=== PATIENT | female | born 1975 | race Caucasian/White ===

== ENCOUNTER → 2017-06-18 | Outpatient (CLI) | payer MEDICAID, SELFPAY | PROVIDERS: Visit Provider Nurse Practitioner Obstetrics & Gynecology | DX: R92.8 Other abnormal and inconclusive findings on diagnostic imaging of breast (principal) | CPT/HCPCS: 76641; 77066; G0204 ==

== ENCOUNTER → 2017-07-28 14:45 | Outpatient (REF) | payer MEDICAID, SELFPAY ==
[2017-07-28 18:44] LABS: Basophils # 0.1 K/mm3 (0-0.2); Basophils % 0.9 % (0.1-2.0); Eosinophils # 0.1 K/mm3 (0.0-0.4); Eosinophils % 1.5 % (0.1-12.0); Hematocrit 42.7 % (37.0-47.0); Hemoglobin 13.9 g/dL (12.2-16.2); Lymphocytes # 2.1 K/mm3 (0.7-4.5); Lymphocytes % 21.6 K/mm3 (10-50); Mean Corpuscular HGB Conc 32.6 g/dL (31.8-35.4); Mean Corpuscular Hemoglobin 30.5 pg (27.0-31.2); Mean Corpuscular Volume 93.6 fl (81-99); Monocytes # 0.5 K/mm3 (0.1-1.0); Monocytes % 4.9 % (1.7-9.3); Neutrophils # 6.7 K/mm3 (1.8-7.8); Neutrophils % 71.1 % (37.0-80.0); Platelet Count 209 K/mm3 (142-424); Red Blood Count 4.56 M/mm3 (4.20-5.40); Red Cell Distribution Width 13.1 % (11.5-17.5); White Blood Count 9.5 K/mm3 (4.8-10.8)
[2017-07-28 19:37] LABS: Alanine Aminotransferase 21 U/L (12-78); Albumin Level 3.9 gm/dL (3.4-5.0); Albumin/Globulin Ratio 1.6 (1.1-1.8); Alkaline Phosphatase 64 U/L (46-116); Anion Gap 11.6 mEq/L (5-15); Aspartate Amino Transferase 19 U/L (15-37); Bilirubin,Total 0.2 mg/dL (0.2-1.0); Blood Urea Nitrogen 11 mg/dL (7-18); Calcium 8.7 mg/dL (8.5-10.1); Carbon Dioxide 27 mmol/L (21.0-32.0); Chloride 106 mmol/L (98-107); Chol/HDL Ratio 2.3 (1-3.5); Cholesterol 152 mg/dL (140-200); Creatinine,Serum 0.98 mg/dL (0.55-1.02); Estimated Glomerular Filt Rate 63 ml/min (>60); GFR (African American) 76 ML/MIN (>60); Globulin 2.5 gm/dl (1.3-3.2); Glucose 85 mg/dL (74-106); HDL Cholesterol 65 mg/dL (29-89); LDL Cholesterol 66 mg/dL (0-130); Potassium 4.6 mmoL/L (3.5-5.1); Sodium 140 mmol/L (136-145); T4 (Thyroxine) 9.2 ug/dl (4.7-13.3); Thyroid Stimulating Hormone 1.05 uIU/ml (0.358-3.740); Total Protein,Serum 6.4 gm/dL (6.4-8.2); Triglycerides 106 mg/dL (30-200); VLDL Cholesterol 21 mg/dL (0-40)
[2017-07-31 11:07] LABS: Vitamin D 25 Hydroxy 33.3 ng/mL (30.0-100.0)
== END ==
LOC: LAB 14:45
PROVIDERS: Visit Provider Physician Assistant
DX: R07.9 Chest pain, unspecified (principal)
CPT/HCPCS: 80053; 80061; 82652; 84436; 84443; 85025

== ENCOUNTER → 2017-08-21 10:15 | Outpatient (CLI) | payer MEDICAID, SELFPAY ==
--- NOTE | 2017-08-21 10:16 | CA_ITS ---
PROCEDURE: 2-D M-mode and color Doppler study INDICATIONS FOR THE TEST: Chest pain+ COPD Heart Murmur Tobacco Smoking+ Palpitations Fatigue Syncope Edema Hypertension Diabetes Mellitus Rheumatic Fever SOB+MILLAN Obesity Hyperlipidemia Family History HD Additional History PATIENT INFORMATION HEIGHT: 61 WEIGHT: 130 GENDER: Female B/P: 110/80 2-D/M-MODE INTERPRETATION: 2-D MEASUREMENTS OBSERVED VALUES IN CMS Right Ventricular Dimension (RVDd) 2.0 Interventricular Septum (Thickness)(IVsd) 0.8 Left Ventricular Internal Dimensions(LVIDd) 4.9 Left Ventricular Posterior Wall (Thickness)(LVPWd) 0.8 Aortic Root 2.7 Aortic Cusp Separation 1.8 Left Atrial Dimensions (LAD) 2.5 2D 1. Left atrium is normal size, left ventricle is normal size, there is preserved left ventricular systolic function, visually estimated ejection fraction 55% with no obvious regional wall motion abnormality. 2. The right atrium and right ventricle are normal size and contractility. 3. The aortic, mitral and tricuspid valve is structurally normal. 4. The pulmonic valve is poorly visualized. 5. There is no significant pericardial effusion noted. DOPPLER INTERROGATION: Doppler interrogation of the aortic, mitral and tricuspid valvular presence of mild mitral and tricuspid regurgitation, calculated right ventricular systolic pressure 39 mm, consistent mild pulmonary hypertension, CONCLUSION: 1. Normal left ventricular size, left ventricle systolic function, visually estimated ejection fraction 55% with no obvious regional wall motion abnormality, diastolic parameters are within normal range. 2. Mild mitral and tricuspid regurgitation, calculated right ventricular systolic pressure is 39 mmHg consistent with mild pulmonary hypertension 3. No significant pericardial effusion noted.
== END ==
PROVIDERS: Family Provider Emergency Medicine; PCP Physician Assistant; Visit Provider Internal Medicine
DX: R07.89 Other chest pain (principal); R06.09 Other forms of dyspnea; F17.200 Nicotine dependence, unspecified, uncomplicated; Z82.49 Family history of ischemic heart disease and other diseases of the circulatory system
CPT/HCPCS: 93017; 93306

== ENCOUNTER → 2017-12-24 14:00 | Outpatient (REF) | payer MEDICAID, SELFPAY ==
[2017-12-24 17:38] LABS: Basophils # 0.1 K/mm3 (0-0.2); Basophils % 0.9 % (0.1-2.0); Eosinophils # 0.1 K/mm3 (0.0-0.4); Eosinophils % 1.4 % (0.1-12.0); Hematocrit 47.8 % (37.0-47.0); Hemoglobin 15.5 g/dL (12.2-16.2); Lymphocytes # 1.2 K/mm3 (0.7-4.5); Mean Corpuscular HGB Conc 32.4 g/dL (31.8-35.4); Mean Corpuscular Hemoglobin 29.7 pg (27.0-31.2); Mean Corpuscular Volume 91.7 fl (81-99); Mean Platelet Volume 8.2 fl (7.4-10.4); Monocytes # 0.6 K/mm3 (0.1-1.0); Monocytes % 8.5 % (1.7-9.3); Neutrophils # 5.1 K/mm3 (1.8-7.8); Neutrophils % 72.3 % (37.0-80.0); Platelet Count 228 K/mm3 (142-424); Red Blood Count 5.21 M/mm3 (4.20-5.40); Red Cell Distribution Width 13.1 % (11.5-17.5)
[2017-12-24 18:09] LABS: Alanine Aminotransferase 22 U/L (12-78); Albumin/Globulin Ratio 1.3 (1.1-1.8); Alkaline Phosphatase 71 U/L (46-116); Anion Gap 17.5 mEq/L (5-15); Aspartate Amino Transferase 23 U/L (15-37); Bilirubin,Total 0.4 mg/dL (0.2-1.0); Blood Urea Nitrogen 6 mg/dL (7-18); Calcium 8.7 mg/dL (8.5-10.1); Carbon Dioxide 25 mmol/L (21.0-32.0); Chloride 102 mmol/L (98-107); Creatinine,Serum 0.74 mg/dL (0.55-1.02); Estimated Glomerular Filt Rate 86 ml/min (>60); GFR (African American) 105 ML/MIN (>60); Globulin 3.2 gm/dl (1.3-3.2); Glucose 73 mg/dL (74-106); Potassium 3.5 mmoL/L (3.5-5.1); Sodium 141 mmol/L (136-145); Total Protein,Serum 7.2 gm/dL (6.4-8.2)
[2017-12-26 18:05] LABS: Hep A Ab, IgM Negative (Negative)
== END ==
LOC: LAB 14:00
PROVIDERS: Visit Provider Physician Assistant
DX: R11.10 Vomiting, unspecified (principal); R19.7 Diarrhea, unspecified
CPT/HCPCS: 80053; 85025; 86708

== ENCOUNTER → 2017-12-30 05:00 | Outpatient (REF) | payer MEDICAID, SELFPAY ==
[2018-01-01 15:26] LABS: Adenovirus F 40/41, stool Not Detected (NotDetected); Astrovirus Not Detected (NotDetected); Campylobacter Not Detected (NotDetected); Clostridium Difficile A/B, PCR Not Detected (NotDetected); Cryptosporidium Not Detected (NotDetected); Cyclospora Cayetanesis Not Detected (NotDetected); Entamoeba histolytica Not Detected (NotDetected); Enteroaggregative E coli Not Detected (NotDetected); Enteropathogenic E coli Not Detected (NotDetected); Enterotoxigenic E coli Not Detected (NotDetected); Giardia lamblia Not Detected (NotDetected); Norovirus Not Detected (NotDetected); Plesimonas Shigalloides, PCR Not Detected (NotDetected); Rotavirus A Not Detected (NotDetected); Sapovirus Not Detected (NotDetected); Shiga-like toxin E coli Not Detected (NotDetected); Shigella Enterovasive E coli Not Detected (NotDetected); Vibrio Cholerae Not Detected (NotDetected); Vibrio, PCR Not Detected (NotDetected); Yersinia Entercolitica, PCR Not Detected (NotDetected)
[2018-01-01 20:20] LABS: Salmonella, PCR Detected (NotDetected)
== END ==
LOC: LAB 05:00
PROVIDERS: Visit Provider Physician Assistant
DX: R11.10 Vomiting, unspecified (principal); R19.7 Diarrhea, unspecified
CPT/HCPCS: 87507

== ENCOUNTER → 2018-06-08 20:59 | Outpatient (CLI) | payer MEDICAID, SELFPAY | PROVIDERS: Visit Provider Nurse Practitioner Family | DX: J02.9 Acute pharyngitis, unspecified (principal) ==

== ENCOUNTER → 2019-09-01 16:41 | Outpatient (CLI) | payer MEDICAID, SELFPAY ==
[2019-09-01 17:04] LABS: Basophils # 0.1 K/mm3 (0-0.2); Basophils % 0.9 % (0.1-2.0); Eosinophils # 0.1 K/mm3 (0.0-0.4); Eosinophils % 1.3 % (0.1-12.0); Hematocrit 40.3 % (37.0-47.0); Hemoglobin 13.4 g/dL (12.2-16.2); Lymphocytes # 2.3 K/mm3 (0.7-4.5); Lymphocytes % 25.2 % (10-50); Mean Corpuscular HGB Conc 33.3 g/dL (31.8-35.4); Mean Corpuscular Hemoglobin 31.4 pg (27.0-31.2); Mean Corpuscular Volume 94.5 fl (81-99); Mean Platelet Volume 8.8 fl (7.4-10.4); Monocytes # 0.4 K/mm3 (0.1-1.0); Monocytes % 4.6 % (1.7-9.3); Neutrophils # 6.1 K/mm3 (1.8-7.8); Platelet Count 204 K/mm3 (142-424); Red Blood Count 4.27 M/mm3 (4.20-5.40); Red Cell Distribution Width 13.2 % (11.5-17.5)
[2019-09-01 17:12] LABS: HCG Qualitative, Serum Negative (Negative)
[2019-09-01 17:13] LABS: Chloride 101 mmol/L (98-107); Potassium 4.2 mmoL/L (3.5-5.1); Sodium 138 mmol/L (136-145)
[2019-09-01 17:16] LABS: Alanine Aminotransferase 19 U/L (12-78); Albumin Level 4.2 g/dl (3.5-5.0); Albumin/Globulin Ratio 1.9 (1.1-1.8); Alkaline Phosphatase 57 U/L (38-126); Anion Gap 14.2 mEq/L (5-15); Aspartate Amino Transferase 27 U/L (14-36); Bilirubin,Total 0.2 mg/dl (0.2-1.3); Blood Urea Nitrogen 14 mg/dl (7-17); Carbon Dioxide 27 mmol/L (22.0-30.0); Cholesterol 171 mg/dl (140-200); Estimated Glomerular Filt Rate 78 ml/min (>60); GFR (African American) 95 ML/MIN (>60); Globulin 2.2 g/dL (1.3-3.2); Glucose 108 mg/dl (74-100); Total Protein,Serum 6.4 g/dl (6.3-8.2); Triglycerides 81 mg/dl (30-150); VLDL Cholesterol 16 mg/dL (0-40)
[2019-09-01 17:17] LABS: Calcium 9.4 mg/dl (8.4-10.2); Chol/HDL Ratio 3.1 (1-3.5); HDL Cholesterol 55 mg/dl (40-60)
[2019-09-01 17:29] LABS: Direct LDL Cholesterol 95.79 mg/dL (100-129)
[2019-09-01 17:33] LABS: T4 (Thyroxine) 6.8 ug/dl (5.53-11.0)
[2019-09-03 20:43] LABS: Vitamin D 25 Hydroxy 37.4 ng/mL (30.0-100.0)
== END ==
PROVIDERS: Visit Provider Physician Assistant
DX: R11.0 Nausea (principal)
CPT/HCPCS: 80053; 80061; 82652; 84436; 84703; 85025

== ENCOUNTER → 2020-01-13 17:07 | Outpatient (CLI) | payer MEDICAID, SELFPAY ==
[2020-01-13 18:07] LABS: Basophils # 0.1 K/mm3 (0-0.2); Basophils % 0.6 % (0.1-2.0); Eosinophils # 0.1 K/mm3 (0.0-0.4); Eosinophils % 0.9 % (0.1-12.0); Hematocrit 44.2 % (37.0-47.0); Lymphocytes # 2.1 K/mm3 (0.7-4.5); Lymphocytes % 23.6 % (10-50); Mean Corpuscular HGB Conc 33.9 g/dL (31.8-35.4); Mean Corpuscular Hemoglobin 32.1 pg (27.0-31.2); Mean Corpuscular Volume 94.6 fl (81-99); Mean Platelet Volume 9.1 fl (7.4-10.4); Monocytes # 0.4 K/mm3 (0.1-1.0); Monocytes % 4.1 % (1.7-9.3); Neutrophils # 6.3 K/mm3 (1.8-7.8); Neutrophils % 70.8 % (37.0-80.0); Platelet Count 225 K/mm3 (142-424); Red Blood Count 4.68 M/mm3 (4.20-5.40); Red Cell Distribution Width 13.4 % (11.5-17.5); White Blood Count 8.8 K/mm3 (4.8-10.8)
[2020-01-13 18:09] LABS: Alanine Aminotransferase 13 U/L (12-78); Albumin Level 4.1 g/dl (3.5-5.0); Albumin/Globulin Ratio 1.9 (1.1-1.8); Alkaline Phosphatase 56 U/L (38-126); Anion Gap 9.5 mEq/L (5-15); Aspartate Amino Transferase 21 U/L (14-36); Bilirubin,Total 0.2 mg/dl (0.2-1.3); Blood Urea Nitrogen 13 mg/dl (7-17); Calcium 9.5 mg/dl (8.4-10.2); Carbon Dioxide 39 mmol/L (22.0-30.0); Chloride 93 mmol/L (98-107); Chol/HDL Ratio 2.9 (1-3.5); Cholesterol 173 mg/dl (140-200); Estimated Glomerular Filt Rate 91 ml/min (>60); GFR (African American) 111 ML/MIN (>60); Globulin 2.2 g/dL (1.3-3.2); Glucose 79 mg/dl (74-100); HDL Cholesterol 59 mg/dl (40-60); Potassium 3.5 mmoL/L (3.5-5.1); Sodium 138 mmol/L (136-145); Total Protein,Serum 6.3 g/dl (6.3-8.2); Triglycerides 170 mg/dl (30-150); VLDL Cholesterol 34 mg/dL (0-40)
[2020-01-13 18:20] LABS: Direct LDL Cholesterol 99.54 mg/dL (100-129)
[2020-01-13 18:26] LABS: T4 (Thyroxine) 8.3 ug/dl (5.53-11.0)
[2020-01-13 18:39] LABS: Thyroid Stimulating Hormone 0.51 uIU/mL (0.465-4.68)
[2020-01-15 10:02] LABS: Vitamin B12 792 pg/mL (232-1245)
[2020-01-19 12:32] LABS: 1,25 Dihydroxy Vitamin D 24 pg/mL (.); 1,25-Dihydroxy, Vitamin D-2 <10 pg/mL (.); 1,25-Dihydroxy, Vitamin D-3 24 pg/mL (.)
== END ==
PROVIDERS: Visit Provider Nurse Practitioner Family
DX: R53.83 Other fatigue (principal)
CPT/HCPCS: 80053; 80061; 82607; 82652; 84436; 84443; 85025

== ENCOUNTER → 2020-07-23 10:25 | Outpatient (CLI) | payer BC, MEDICAID, SELFPAY ==
[2020-07-23 15:11] LABS: Basophils # 0.1 K/mm3 (0-0.2); Basophils % 1.3 % (0.1-2.0); Eosinophils # 0.2 K/mm3 (0.0-0.4); Eosinophils % 2.9 % (0.1-12.0); Hematocrit 46.4 % (37.0-47.0); Hemoglobin 15.6 g/dL (12.2-16.2); Lymphocytes # 2.1 K/mm3 (0.7-4.5); Lymphocytes % 28.3 % (10-50); Mean Corpuscular HGB Conc 33.7 g/dL (31.8-35.4); Mean Corpuscular Hemoglobin 32.1 pg (27.0-31.2); Mean Corpuscular Volume 95.1 fl (81-99); Mean Platelet Volume 9.7 fl (7.4-10.4); Monocytes # 0.4 K/mm3 (0.1-1.0); Monocytes % 5.7 % (1.7-9.3); Neutrophils # 4.6 K/mm3 (1.8-7.8); Neutrophils % 61.8 % (37.0-80.0); Platelet Count 210 K/mm3 (142-424); Red Blood Count 4.88 M/mm3 (4.20-5.40); Red Cell Distribution Width 14.3 % (11.5-17.5); White Blood Count 7.5 K/mm3 (4.8-10.8)
[2020-07-23 15:57] LABS: Alanine Aminotransferase 16 U/L (12-78); Albumin Level 4.5 g/dl (3.5-5.0); Albumin/Globulin Ratio 1.8 (1.1-1.8); Alkaline Phosphatase 62 U/L (38-126); Anion Gap 12.4 mEq/L (5-15); Aspartate Amino Transferase 27 U/L (14-36); Bilirubin,Total 0.4 mg/dl (0.2-1.3); Blood Urea Nitrogen 12 mg/dl (7-17); Calcium 9.8 mg/dl (8.4-10.2); Carbon Dioxide 28 mmol/L (22.0-30.0); Chloride 101 mmol/L (98-107); Chol/HDL Ratio 2.5 (1-3.5); Cholesterol 174 mg/dl (140-200); Estimated Glomerular Filt Rate 78 ml/min (>60); GFR (African American) 95 ML/MIN (>60); Globulin 2.5 g/dL (1.3-3.2); Glucose 87 mg/dl (74-100); HDL Cholesterol 70 mg/dl (40-60); Potassium 4.4 mmoL/L (3.5-5.1); Sodium 137 mmol/L (136-145); Triglycerides 88 mg/dl (30-150); VLDL Cholesterol 18 mg/dL (0-40)
[2020-07-23 16:09] LABS: C-Reactive Protein < 0.3 mg/L (0-4)
[2020-07-23 16:15] LABS: T4 (Thyroxine) 7.9 ug/dl (5.53-11.0)
[2020-07-23 16:28] LABS: Thyroid Stimulating Hormone 1.56 uIU/mL (0.465-4.68)
[2020-07-23 16:30] LABS: Erythrocyte Sedimentation Rate 17 mm/hr (0-20)
[2020-07-25 14:53] LABS: Anti-Centromere B Antibodies <0.2 AI (0.0-0.9); Anti-Jo-1 <0.2 AI (0.0-0.9); Anti-Smith Antibody <0.2 AI (0.0-0.9); Antichromatin Antibodies <0.2 AI (0.0-0.9); Antiscleroderma-70 Antibodies 0.3 AI (0.0-0.9); RNP Antibodies <0.2 AI (0.0-0.9); Sjogren's Anti-SS-A <0.2 AI (0.0-0.9); Sjogren's Anti-SS-B <0.2 AI (0.0-0.9)
[2020-07-25 15:42] LABS: Anti-DNA (DS) Ab Qn 1 IU/mL (0-9); RA Latex Turbid. <10.0 IU/mL (0.0-13.9)
[2020-07-26 08:48] LABS: Anti-Cyclic Citrullinated Pept 2 units (0-19)
== END ==
PROVIDERS: PCP Physician Assistant; Visit Provider Physician Assistant
DX: R42 Dizziness and giddiness (principal); R55 Syncope and collapse
CPT/HCPCS: 80053; 80061; 82306; 84436; 84443; 85025; 85651; 86140; 86200; 86225; 86235; 86431; 93225; 93226

== ENCOUNTER → 2020-08-06 13:05 | Outpatient (CLI) | payer BC, MEDICAID, SELFPAY ==
--- NOTE | 2020-08-06 13:06 | CA_ITS ---
APPROVED REPORT EXAM: Comprehensive 2D, Doppler, and color-flow Echocardiogram Photographic Laboratory Supervisor: Belia Castillo RVT Ht: 5 ft 1 in Wt: 102lbs BSA: 1.42 BP: 110/78 mmHg Indications: DIZZINESS,SYNCOPE,SMOKER 2D Dimensions LVOT 1.39 cm (M/F) 1.5-2.5 LA Volume 22.10 mL LA Volume Index 15.56 mL/m2 (M/F) 16-34 M-Mode Dimensions RVDd 2.59 cm (0.9-2.6) LA Diam 2.65 cm (1.9-4.0) LVDd 4.72 cm (3.5-5.7) Ao Diam 2.29 cm (2.0-3.7) LVDs 3.34 cm (3.5-5.7) IVSd 0.66 cm (0.6-1.1) PWd 0.50 cm (0.6-1.1) EF (Teich) 56.10% FS 29.20% EDV (Teich) 103.40 mL ESV (Teich) 45.40 mL LV Diastology E Decel Time 217.00 (160-240 msec) E/A Ratio 1.2 MED E' 13.10 (< 7 cm/sec) E'/MED E' Ratio 6.72 (>14) LAT E' 17.90 (<10 cm/sec) E/LAT E' Ratio 4.92 (>14) Mitral Valve MV E Max Jesús. 88.00 (40-130 cm/s) MV A Velocity 73.00 (40-130 cm/s) E/A Ratio 1.21 MV Decel. Time 217.00 (160-240 ms) MV PHT 63.00 ms Pulmonary Valve PV Peak Velocity 72.00 (50-150 cm/s) Tricuspid Valve TR P. Velocity 262.00 cm/s RAP Estimate 10.00 mmHg RVSP 37.60 mmHg Left Ventricle Left atrium is normal size, left ventricle is normal size, there is no concentric left ventricular hypertrophy, there is preserved left ventricular systolic function, visually estimated ejection fraction 55% with no regional wall motion abnormality, diastolic parameters are within normal range. Right Ventricle Right atrium and right ventricle are normal size and contractility. Aortic Valve Aortic valve is minimally thickened and fibrosed, there is no aortic stenosis or aortic insufficiency. Mitral Valve Mitral valve leaflets are minimally thickened, there is mild mitral regurgitation. Tricuspid Valve Tricuspid valve is grossly normal, there is mild tricuspid regurgitation, tricuspid regurgitation jet velocity is inadequate for calculation of the right ventricular systolic pressure. Pulmonic Valve Pulmonic valve is poorly visualized. Great Vessels Aortic root is normal size. Pericardium No significant pericardial effusion noted. Conclusion 1. Normal left ventricular size, preserved left ventricular systolic function, visually estimated ejection fraction 55% with no regional wall motion abnormality, diastolic parameters are within normal range. 2. Mild mitral and tricuspid regurgitation. 3. No significant pericardial effusion noted. Electronically signed by : Earl Redding, 08/06/2020 21:07:46
--- NOTE | 2020-08-06 14:04 | CT_ITS ---
PROCEDURE: CT HEAD/BRAIN WO CON CLINICAL INDICATION: vertigo Vertigo and syncope COMPARISON: No exams were available for comparison TECHNIQUE: Axial images obtained. All CT scans at the facility use one or more dose reduction, viz: automated exposure control, ma/kV adjustment per patient size (including targeted exams where dose is matched to indication, i.e. head), or iterative reconstruction technique. FINDINGS: No midline shift, mass effect, intracranial hemorrhage, hydrocephalus, or extra-axial fluid collection is evident. The calvarium has an unremarkable appearance. No mastoid effusion. No sinus air-fluid level. IMPRESSION: No acute intracranial finding Dictated by: Tree Calle MD 08/06/2020 19:13 Tree Calle MD in [place] 08/06/2020 19:13
== END ==
PROVIDERS: PCP Physician Assistant; Visit Provider Physician Assistant
DX: R42 Dizziness and giddiness (principal)
CPT/HCPCS: 70450; 93306

== ENCOUNTER → 2020-08-16 16:50 | Outpatient (CLI) | payer BC, MEDICAID, SELFPAY ==
[2020-08-18 16:12] LABS: Testosterone,Total 16 ng/dL (8-48)
[2020-08-19 01:06] LABS: FSH 69.2 mIU/mL (.); LH 44.3 mIU/mL (.); Progesterone 0.3 ng/mL (.)
[2020-08-19 20:20] LABS: Anti-DNA (DS) Ab Qn 1 IU/mL (0-9)
[2020-08-21 13:34] LABS: Estrogen 80 pg/mL (.)
== END ==
LOC: LAB 16:51 → LAB.DROPOF 17:19
PROVIDERS: Visit Provider Physician Assistant
DX: R55 Syncope and collapse (principal); R42 Dizziness and giddiness
CPT/HCPCS: 82672; 83001; 83002; 84144; 84403; 86225

== ENCOUNTER → 2020-08-24 10:28 | Outpatient (CLI) | payer BC, MEDICAID, SELFPAY ==
--- NOTE | 2020-08-24 | CA_ITS ---
APPROVED REPORT Exam: Exercise Treadmill Technologist: Betzaida Garcia, Ht: 5 ft 1 in Wt: 98 lbs BSA: 1.40 m2 HR: 81 bpm BP: 126/77 mmHg Rhythm: NSR Indications: Syncope - SOB AND CHEST PAIN Stress Test Details Test: Chin HR Resting HR: 91 bpm Max Heart Rate (APMHR): 176 bpm Max HR Achieved: 164 bpm Target HR (85% APMHR): 149 bpm % of APMHR: 93 Recovery HR: 86 bpm BP Resting BP: 126/77 mmHg Max BP: 170/80 mmHg Recovery BP: 120.0/63.0 mmHg ECG Clinical Reason for Termination: Target HR Achieved Exercise duration: 08:54 min Highest Stage Achieved: Exercise capacity: 10.1 METs Stress ECG Conclusion Max HR - 164: % of PM - 93%: Max B/P - 170/80: METs - 10.1: test stopped due to shortness of air - resolved in recovery. Symptoms - No chest pain - shortness of air at peak exercise. Occ. PVC. Less than 1.5mm ST depression. Stree echo - average exercise capacity - appropiate BP response - less than 1.5 mmST depression and no chest pain. Test Summary REST . . . . . . . Resting REST 03:18 0.0 0.0 91 . 126/ 77 . . Stage 1 01:00 10.0 1.7 95 . . . . Stage 1 02:00 10.0 1.7 105 . . . . Stage 1 03:00 10.0 1.7 98 . 120/ 70 . . Stage 2 01:00 12.0 2.5 112 . . . . Stage 2 02:00 12.0 2.5 121 . 140/ 80 . . Stage 2 03:00 12.0 2.5 135 . 140/ 80 . . Stage 3 01:00 14.0 3.4 138 . 140/ 80 . . Stage 3 02:00 14.0 3.4 154 . 170/ 80 . . Stage 3 02:54 14.0 0.0 155 . 170/ 80 . Stop exercise at 08:54 RECOVERY 01:00 0.0 0.0 114 . . . . RECOVERY 02:00 0.0 0.0 93 . . . . RECOVERY 03:00 0.0 0.0 93 . . . . RECOVERY 04:00 0.0 0.0 92 . 123/ 65 . . RECOVERY 05:00 0.0 0.0 92 . 120/ 63 . . RECOVERY 05:08 0.0 0.0 96 . 120/ 63 . . Electronically signed by : Earl Redding, 08/24/2020 12:15:37
--- NOTE | 2020-08-24 10:30 | CA_ITS ---
APPROVED REPORT EXAM: Comprehensive 2D, Doppler, and color-flow Echocardiogram [employer] Engineer: RT Cee(R) Ht: 5 ft 1 in Wt: 92lbs BSA: 1.36 BP: 120/82 mmHg Indications: syncope, SOB, smoker, CP Conclusion 1. Patient exercised on Chin protocol achieved 10.1 mets of workload on treadmill, the blood pressure response to exercise was adequate, EKG was negative for ischemia, there was no exercise-induced chest discomfort. 2. Normal left ventricular size and function, estimated ejection fraction 55% at rest, with no regional wall motion abnormality, with exercise there is increase in contractility of all the segments of the myocardium with hyperdynamic left ventricular systolic response, no obvious regional wall motion abnormality to suggest underlying ischemic heart disease. 3. Normal exercise stress echo. Electronically signed by : Earl Redding, 08/24/2020 12:17:22
== END ==
PROVIDERS: PCP Physician Assistant; Visit Provider Physician Assistant
DX: R06.00 Dyspnea, unspecified (principal); R55 Syncope and collapse; R32 Unspecified urinary incontinence; Z72.0 Tobacco use
CPT/HCPCS: 93017; 93350

== ENCOUNTER → 2020-08-29 10:21 | Outpatient (CLI) | payer BC, MEDICAID, SELFPAY ==
--- NOTE | 2020-08-29 10:25 | XR_ITS ---
PROCEDURE: XR CHEST 2V CLINICAL HISTORY: dyspnea Smoking history COMPARISON: No exams were available for comparison FINDINGS: The cardiomediastinal silhouette and pulmonary vascularity are within normal limits. There is mild hyperinflation lung [place] however there is no infiltrate seen and there is no pleural fluid. The bony thorax appears normal. IMPRESSION: Mild hyperinflation which could possibly suggest findings of asthma or early COPD Dictated by: Dr. Deangelo Mcneill MD 08/29/2020 10:57 Dr. Deangelo Mcneill MD in [place] 08/29/2020 10:57
== END ==
PROVIDERS: PCP Physician Assistant; Visit Provider Internal Medicine
DX: R06.00 Dyspnea, unspecified (principal); R55 Syncope and collapse
CPT/HCPCS: 71046

== ENCOUNTER → 2020-10-02 10:52 | Outpatient (CLI) | payer BC, MEDICAID, SELFPAY ==
[2020-10-02 11:24] LABS: Basophils # 0.1 K/mm3 (0-0.2); Basophils % 0.8 % (0.1-2.0); Eosinophils # 0.1 K/mm3 (0.0-0.4); Eosinophils % 1.2 % (0.1-12.0); Hematocrit 40.1 % (37.0-47.0); Hemoglobin 13.2 g/dL (12.2-16.2); Lymphocytes # 2.7 K/mm3 (0.7-4.5); Lymphocytes % 30.4 % (10-50); Mean Corpuscular HGB Conc 32.9 g/dL (31.8-35.4); Mean Corpuscular Hemoglobin 30.8 pg (27.0-31.2); Mean Corpuscular Volume 93.6 fl (81-99); Monocytes # 0.5 K/mm3 (0.1-1.0); Monocytes % 5.2 % (1.7-9.3); Neutrophils # 5.6 K/mm3 (1.8-7.8); Neutrophils % 62.3 % (37.0-80.0); Platelet Count 218 K/mm3 (142-424); Red Blood Count 4.28 M/mm3 (4.20-5.40); Red Cell Distribution Width 14.1 % (11.5-17.5)
[2020-10-03 17:22] LABS: Alpha-1-Antitrypsin 139 mg/dL (101-187)
[2020-10-05 11:08] LABS: D001-IgE D pteronyssinus <0.10 kU/L (Class 0); D002-IgE D farinae <0.10 kU/L (Class 0); E001-IgE Cat Dander <0.10 kU/L (Class 0); E005-IgE Dog Dander <0.10 kU/L (Class 0); G002-IgE Bermuda Grass <0.10 kU/L (Class 0); G006-IgE Timothy Grass <0.10 kU/L (Class 0); I006-IgE Cockroach, German <0.10 kU/L (Class 0); Immunoglobulin E, Total 33 IU/mL (6-495); M001-IgE Penicillium chrysogen <0.10 kU/L (Class 0); M002-IgE Cladosporium herbarum <0.10 kU/L (Class 0); M003-IgE Aspergillus fumigatus <0.10 kU/L (Class 0); M006-IgE Alternaria alternata <0.10 kU/L (Class 0); T001-IgE Maple/Box Elder <0.10 kU/L (Class 0); T003-IgE Common Silver Birch <0.10 kU/L (Class 0); T006-IgE Cedar, Mountain <0.10 kU/L (Class 0); T007-IgE Oak, White <0.10 kU/L (Class 0); T008-IgE Elm, American <0.10 kU/L (Class 0); T010-IgE Walnut <0.10 kU/L (Class 0); T011-IgE Maple Leaf Sycamore <0.10 kU/L (Class 0); T014-IgE Cottonwood <0.10 kU/L (Class 0); T015-IgE Ash, White <0.10 kU/L (Class 0); T022-IgE Pecan, Hickory <0.10 kU/L (Class 0); T070-IgE White Mulberry <0.10 kU/L (Class 0); W001-IgE Ragweed, Short <0.10 kU/L (Class 0); W011-IgE Thistle, Russian <0.10 kU/L (Class 0); W014-IgE Pigweed, Common <0.10 kU/L (Class 0); W018-IgE Sheep Sorrel <0.10 kU/L (Class 0)
[2020-10-05 12:24] LABS: E072-IgE Mouse Urine <0.10 kU/L (Class 0)
== END ==
PROVIDERS: Visit Provider Internal Medicine Pulmonary Disease
DX: J44.9 Chronic obstructive pulmonary disease, unspecified (principal); J45.909 Unspecified asthma, uncomplicated
CPT/HCPCS: 36415; 82103; 82785; 85025; 86003

== ENCOUNTER → 2020-10-09 13:00 | Outpatient (CLI) | payer BC, MEDICAID, SELFPAY | PROVIDERS: PCP Physician Assistant; Visit Provider Physician Assistant | DX: R09.89 Other specified symptoms and signs involving the circulatory and respiratory systems (principal) | CPT/HCPCS: 94060; 94726; 94729 ==

== ENCOUNTER 2020-11-24 11:36 | Emergency (ER) | payer MEDICAID, SELFPAY ==
[2020-11-24 11:40] VITALS: BP 146/70; PULSE 54; RESP 19; TEMP 36.8; O2SAT 98; BMI 19.8
--- NOTE | 2020-11-24 12:25 | HMH.EDUTC ---
[facility] [place] Disposition Clinical Impression: Nausea & vomiting Qualifiers: Vomiting type: unspecified Vomiting Intractability: non-intractable Qualified Code(s): R11.2 - Nausea with vomiting, unspecified Diarrhea Qualifiers: Diarrhea type: unspecified type Qualified Code(s): R19.7 - Diarrhea, unspecified Disposition: Home, Self-Care Condition on Discharge: Good Instructions: Nausea and Vomiting-Adult, Diarrhea Additional Instructions: Monitor temperature. Seek treatment if fever develops. Follow-up immediately if new or worse symptoms worsen or no noticeable improvement over 48 hours. Increase fluids such as water, Gatorade, Powerade, juice or Pedialyte with limited formula/dietary in children No food is okay as long as you are drinking. Once ready to eat start bland such as bananas, rice, applesauce, toast. Contagious until no diarrhea, vomiting, fever times 48 hours without medication Avoid antidiarrheals unless told otherwise. Best to let the virus run its course. Follow-up immediately for new or worsening symptoms or no noticeable improvement over the next 48 hours. Prescriptions: ondansetron HCL [Zofran 4mg Tab*] 4 mg PO TIDP PRN 3 Days #10 tab PRN Reason: Nausea Transmission Status: Pending to [id number] Referrals: Kamla Mcneil PA [Primary Care Provider] - Time of Disposition: 14:12 Medical Decision Making - Mushtaq Inquiry Pt receiving controlled substance: No Vital Signs: 11/24/20 11:40 Temperature 98.2 F Temperature Source Oral Pulse Rate [Right Brachial] 54 L Respiratory Rate 19 Blood Pressure [Right Arm] 146/70 H Blood Pressure Mean [Right Arm] 95 Blood Pressure Source [Right Arm] Automatic Cuff Blood Pressure Position [Right Arm] Sitting 02 Sat by Pulse Oximetry 98 Oxygen Delivery Method Room Air - Lab Data Lab Results 11/24/20 12:56: WBC 11.1 H, RBC 4.69, Hgb 14.7, Hct 42.9, MCV 91.5, MCH 31.2, MCHC 34.1, RDW 13.4, Plt Count 266, MPV 8.4, Neut % (Auto) 86.1 H, Lymph % (Auto) 11.1, [place] % (Auto) 1.8, Eos % (Auto) 0.3, Baso % (Auto) 0.5, Neut # (Auto) 9.5 H, Lymph # (Auto) 1.2, [place] # (Auto) 0.2, Eos # (Auto) 0.0, Baso # (Auto) 0.1, Total Counted 100, Neutrophils % (Manual) 88 H, Lymphocytes % (Manual) 8 L, Monocytes % (Manual) 4, Platelet Estimate Normal, RBC Morphology Normal 11/24/20 12:56: Sodium 140, Potassium 3.8, Chloride 104, Carbon Dioxide 28, Anion Gap 11.8, BUN 8, Creatinine 0.70, Estimated Creat Clear 77, Estimated GFR 91, Est GFR ( Amer) 110, Glucose 184 H, Calcium 9.6, Total Bilirubin 0.5, AST 29, ALT 24, Alkaline Phosphatase 69, Total Protein 7.4, Albumin 4.8, Globulin 2.6, Albumin/Globulin Ratio 1.8 11/24/20 12:56: Hemoglobin A1c 5.2 Result diagrams: 11/24/20 12:56 11/24/20 12:56 Orders (Tests/Meds): ED MEDICATIONS Generic Name Dose Route Start Last Admin Trade Name Freq PRN Reason Stop Dose Admin Sodium Chloride 1,000 mls @ 999 mls/hr 11/24/20 12:45 11/24/20 13:01 Sod Chlor 0.9% 1000ml Bag IV 11/24/20 13:45 999 mls/hr .Q1H1M LOBO Administration Discontinued Medications Generic Name Dose Route Start Last Admin Trade Name Freq PRN Reason Stop Dose Admin Ondansetron HCl 4 mg 11/24/20 13:00 11/24/20 13:01 Ondansetron 4mg/2ml Vial IV 11/24/20 13:01 4 mg ONCE ONE Administration ORDERS Category Date Time Status Diarrhea 23 Panel, PCR Stat Lab 11/24/20 13:51 Ordered [facility] [place] HPI - General Chief complaint: Urgent [facility] Stated complaint: vomiting, diarrhea, fever Time Seen by Provider: 11/24/20 12:29 Mode of Arrival: Ambulatory Source of Information: Patient Limitations: No Limitations Description of Symptoms (Recalled from Triage Doc. by RN): PATIENT C/O NAUSEA, VOMITING, DIARRHEA, AND DIZZINESS SINCE APPROX 0530 THIS MORNING HEENT Symptoms (Recalled from RN notes): No Resp Symptoms (Recalled from RN notes): No Skin Symptoms (Recalled from RN notes): No MS Symptoms (Recalled from RN notes): No Funct
[2020-11-24 13:01] LABS: Basophils # 0.1 K/mm3 (0-0.2); Basophils % 0.5 % (0.1-2.0); Eosinophils % 0.3 % (0.1-12.0); Hematocrit 42.9 % (37.0-47.0); Hemoglobin 14.7 g/dL (12.2-16.2); Lymphocytes # 1.2 K/mm3 (0.7-4.5); Lymphocytes % 11.1 % (10-50); Mean Corpuscular HGB Conc 34.1 g/dL (31.8-35.4); Mean Corpuscular Hemoglobin 31.2 pg (27.0-31.2); Mean Corpuscular Volume 91.5 fl (81-99); Mean Platelet Volume 8.4 fl (7.4-10.4); Monocytes # 0.2 K/mm3 (0.1-1.0); Monocytes % 1.8 % (1.7-9.3); Neutrophils # 9.5 K/mm3 (1.8-7.8); Neutrophils % 86.1 % (37.0-80.0); Platelet Count 266 K/mm3 (142-424); Red Blood Count 4.69 M/mm3 (4.20-5.40); Red Cell Distribution Width 13.4 % (11.5-17.5); White Blood Count 11.1 K/mm3 (4.8-10.8)
[2020-11-24 13:04] LABS: MANUAL DIFFERENTIAL MANUAL DIFFERENTIAL (MANUAL DIFF)
[2020-11-24 13:05] LABS: Chloride 104 mmol/L (98-107); Potassium 3.8 mmoL/L (3.5-5.1); Sodium 140 mmol/L (136-145)
[2020-11-24 13:08] LABS: Alanine Aminotransferase 24 U/L (12-78); Albumin Level 4.8 g/dl (3.5-5.0); Albumin/Globulin Ratio 1.8 (1.1-1.8); Alkaline Phosphatase 69 U/L (38-126); Anion Gap 11.8 mEq/L (5-15); Aspartate Amino Transferase 29 U/L (14-36); Bilirubin,Total 0.5 mg/dl (0.2-1.3); Blood Urea Nitrogen 8 mg/dl (7-17); Calcium 9.6 mg/dl (8.4-10.2); Carbon Dioxide 28 mmol/L (22.0-30.0); Creatinine Clearance Estimated 77 mL/min (50-200); Estimated Glomerular Filt Rate 91 ml/min (>60); GFR (African American) 110 ML/MIN (>60); Globulin 2.6 g/dL (1.3-3.2); Glucose 184 mg/dl (74-100); Total Protein,Serum 7.4 g/dl (6.3-8.2)
[2020-11-24 13:11] LABS: Lymphocytes % 8 % (10-50); Monocytes % 4 % (2-9); Neutrophils % 88 % (42-76); Platelet Estimate Normal; RBC Morphology Normal; Total Cells Counted 100
[2020-11-24 14:00] LABS: Hemoglobin A1C 5.2 % (4.0-6.0)
[2020-11-24 14:15] LABS: Adenovirus F 40/41, stool Not Detected (NotDetected); Astrovirus Not Detected (NotDetected); Campylobacter Not Detected (NotDetected); Clostridium Difficile A/B, PCR Not Detected (NotDetected); Cryptosporidium Not Detected (NotDetected); Cyclospora Cayetanesis Not Detected (NotDetected); Entamoeba histolytica Not Detected (NotDetected); Enteroaggregative E coli Not Detected (NotDetected); Enteropathogenic E coli Not Detected (NotDetected); Enterotoxigenic E coli Not Detected (NotDetected); Giardia lamblia Not Detected (NotDetected); Norovirus Not Detected (NotDetected); Plesimonas Shigalloides, PCR Not Detected (NotDetected); Rotavirus A Not Detected (NotDetected); Salmonella, PCR Not Detected (NotDetected); Sapovirus Not Detected (NotDetected); Shiga-like toxin E coli Not Detected (NotDetected); Shigella Enterovasive E coli Not Detected (NotDetected); Vibrio Cholerae Not Detected (NotDetected); Vibrio, PCR Not Detected (NotDetected); Yersinia Entercolitica, PCR Not Detected (NotDetected)
[2020-11-24 14:23] VITALS: BP 146/70; PULSE 54; RESP 19; TEMP 36.8; O2SAT 98
== END 2020-11-24 14:26 | disposition home or self-care (01) ==
PROVIDERS: Emergency Provider Nurse Practitioner Family; PCP Physician Assistant
DX: R42 Dizziness and giddiness (principal); F41.8 Other specified anxiety disorders; R11.2 Nausea with vomiting, unspecified; E11.9 Type 2 diabetes mellitus without complications; F17.210 Nicotine dependence, cigarettes, uncomplicated
CPT/HCPCS: 80053; 83036; 85007; 85025; 87507; 96365; 96375; 99202; G0463; J2405

== ENCOUNTER → 2020-12-10 13:52 | Outpatient (CLI) | payer MEDICAID, SELFPAY ==
[2020-12-10 15:32] LABS: Amphetamine/Metha Screen,Urine Negative ng/ml (<1000)
[2020-12-10 15:33] LABS: Barbiturates Screen,Urine Negative ng/ml (<200); Benzodiazepines Screen,Urine Negative ng/ml (<200)
[2020-12-10 15:34] LABS: Cannabinoid Screen,Urine Positive ng/ml (<50)
[2020-12-10 15:35] LABS: Cocaine Screen,Urine Negative ng/ml (<300)
[2020-12-10 15:36] LABS: Methadone Screen,Urine Negative ng/ml (<300); Opiate Screen,Urine Negative ng/ml (<300)
[2020-12-10 15:37] LABS: Phencyclidine Screen,Urine Negative ng/ml (<25)
== END ==
PROVIDERS: Visit Provider Physician Assistant
DX: Z79.899 Other long term (current) drug therapy (principal)
CPT/HCPCS: 80305

== ENCOUNTER → 2021-02-25 15:04 | Outpatient (CLI) | payer MEDICAID, SELFPAY ==
[2021-02-25 16:13] LABS: Basophils # 0.1 K/mm3 (0-0.2); Eosinophils # 0.2 K/mm3 (0.0-0.4); Eosinophils % 3.1 % (0.1-12.0); Hematocrit 40.1 % (37.0-47.0); Hemoglobin 13.5 g/dL (12.2-16.2); Lymphocytes # 2.3 K/mm3 (0.7-4.5); Mean Corpuscular HGB Conc 33.5 g/dL (31.8-35.4); Mean Corpuscular Hemoglobin 32.2 pg (27.0-31.2); Mean Corpuscular Volume 96.1 fl (81-99); Mean Platelet Volume 8.6 fl (7.4-10.4); Monocytes # 0.4 K/mm3 (0.1-1.0); Monocytes % 5.8 % (1.7-9.3); Neutrophils # 3.9 K/mm3 (1.8-7.8); Neutrophils % 56.1 % (37.0-80.0); Platelet Count 207 K/mm3 (142-424); Red Blood Count 4.18 M/mm3 (4.20-5.40); Red Cell Distribution Width 13.7 % (11.5-17.5)
[2021-02-25 18:08] LABS: Alanine Aminotransferase 16 U/L (12-78); Albumin Level 4.1 g/dl (3.5-5.0); Albumin/Globulin Ratio 1.7 (1.1-1.8); Alkaline Phosphatase 59 U/L (38-126); Anion Gap 10.4 mEq/L (5-15); Aspartate Amino Transferase 24 U/L (14-36); Bilirubin,Total 0.2 mg/dl (0.2-1.3); Blood Urea Nitrogen 11 mg/dl (7-17); Calcium 9.1 mg/dl (8.4-10.2); Carbon Dioxide 27 mmol/L (22.0-30.0); Chloride 105 mmol/L (98-107); Chol/HDL Ratio 4.4 (1-3.5); Cholesterol 223 mg/dl (140-200); Estimated Glomerular Filt Rate 78 ml/min (>60); GFR (African American) 94 ML/MIN (>60); Globulin 2.4 g/dL (1.3-3.2); Glucose 88 mg/dl (74-100); HDL Cholesterol 51 mg/dl (40-60); Potassium 4.4 mmoL/L (3.5-5.1); Sodium 138 mmol/L (136-145); Total Protein,Serum 6.5 g/dl (6.3-8.2); Triglycerides 330 mg/dl (30-150); VLDL Cholesterol 66 mg/dL (0-40)
[2021-02-25 18:19] LABS: Direct LDL Cholesterol 123.74 mg/dL (100-129)
[2021-02-25 18:25] LABS: 25-OH Vitamin D, Total 44.2 ng/mL (30-100)
[2021-02-25 18:26] LABS: T4 (Thyroxine) 6.5 ug/dl (5.53-11.0)
[2021-02-25 18:39] LABS: Thyroid Stimulating Hormone 0.64 uIU/mL (0.465-4.68)
[2021-02-25 18:58] LABS: Vitamin B12 307 pg/mL (239-931)
== END ==
PROVIDERS: Visit Provider Physician Assistant
DX: R25.1 Tremor, unspecified (principal); R41.3 Other amnesia
CPT/HCPCS: 36415; 80053; 80061; 82306; 82607; 84436; 84443; 85025

== ENCOUNTER → 2021-02-26 15:08 | Outpatient (CLI) | payer MEDICAID, SELFPAY ==
--- NOTE | 2021-02-26 15:08 | CT_ITS ---
PROCEDURE: CT HEAD/BRAIN WO CON CLINICAL INDICATION: memory loss COMPARISON: CT CT HEAD/BRAIN WO CON from 08/06/2020 TECHNIQUE: Axial images obtained. All CT scans at the facility use one or more dose reduction, viz: automated exposure control, ma/kV adjustment per patient size (including targeted exams where dose is matched to indication, i.e. head), or iterative reconstruction technique. FINDINGS: No midline shift, mass effect, intracranial hemorrhage, hydrocephalus, or extra-axial fluid collection is evident. The calvarium has an unremarkable appearance. No mastoid effusion. No sinus air-fluid level. IMPRESSION: Negative CT head without contrast, no acute finding Dictated by: Tree Calle MD 02/26/2021 17:15 Tree Calle MD in [place] 02/26/2021 17:15
== END ==
PROVIDERS: PCP Physician Assistant; Visit Provider Physician Assistant
DX: R25.1 Tremor, unspecified (principal); R41.3 Other amnesia
CPT/HCPCS: 70450

== ENCOUNTER → 2021-03-08 18:01 | Outpatient (CLI) | payer MEDICAID, SELFPAY | PROVIDERS: Visit Provider Physician Assistant | DX: R39.9 Unspecified symptoms and signs involving the genitourinary system (principal) | CPT/HCPCS: 87086 ==

== ENCOUNTER → 2021-07-24 17:38 | Outpatient (CLI) | payer MEDICAID, SELFPAY ==
[2021-07-24 18:25] LABS: Amphetamine/Metha Screen,Urine Negative ng/ml (<1000)
[2021-07-24 18:26] LABS: Barbiturates Screen,Urine Negative ng/ml (<200); Benzodiazepines Screen,Urine Negative ng/ml (<200)
[2021-07-24 18:27] LABS: Cannabinoid Screen,Urine Positive ng/ml (<50)
[2021-07-24 18:28] LABS: Cocaine Screen,Urine Negative ng/ml (<300); Methadone Screen,Urine Negative ng/ml (<300)
[2021-07-24 18:29] LABS: Opiate Screen,Urine Negative ng/ml (<300)
[2021-07-24 18:30] LABS: Phencyclidine Screen,Urine Negative ng/ml (<25)
== END ==
PROVIDERS: Visit Provider Physician Assistant
DX: F41.9 Anxiety disorder, unspecified (principal)
CPT/HCPCS: 80305

== ENCOUNTER → 2021-11-29 07:33 | Outpatient (CLI) | payer MEDICAID, SELFPAY | PROVIDERS: PCP Physician Assistant; Visit Provider Physician Assistant | DX: R35.0 Frequency of micturition (principal); B96.20 Unspecified Escherichia coli [E. coli] as the cause of diseases classified elsewhere | CPT/HCPCS: 87086; 87088; 87186 ==

== ENCOUNTER 2022-05-29 17:18 | Emergency (ER) | payer MEDICAID, SELFPAY ==
--- NOTE | 2022-05-29 17:39 | HMH.EDGENADL ---
Discharge Plan Disposition Patient Disposition: Home, Self-Care Condition: Good Prescriptions Prescriptions: New ondansetron 4 mg tablet,disintegrating 4 mg PO Q8H Qty: 30 0RF No Action albuterol sulfate 90 mcg/actuation HFA aerosol inhaler 1 inh INHALATION QID PRN (Reason: shortness of breath or wheezing) Qty: 8.5 12RF atorvastatin 10 mg tablet See Rx Instructions .ROUTE .COMPLEX Qty: 90 0RF Dose Instruction: TAKE 1 TABLET BY MOUTH AT BEDTIME Rx Instructions: TAKE 1 TABLET BY MOUTH AT BEDTIME budesonide-formoterol [Symbicort] 160-4.5 mcg/actuation HFA aerosol inhaler 2 puff INHALATION BID Qty: 10.2 12RF azelastine 137 mcg (0.1 %) aerosol,spray 1 spray INTRANASAL BID Qty: 30 6RF Rx Instructions: administer into each nostril cetirizine 10 mg tablet 10 mg PO DAILY Qty: 90 3RF fluticasone propionate [Flonase Allergy Relief] 50 mcg/actuation spray,suspension 1 spray INTRANASAL DAILY Qty: 16 6RF Rx Instructions: administer into each nostril hydroxyzine pamoate 50 mg capsule 50 mg PO TID PRN (Reason: itching) 30 Days Qty: 90 2RF mecobalamin (vitamin B12) 5,000 mcg tablet,disintegrating 5,000 mcg PO DAILY Qty: 90 3RF vilazodone 40 mg tablet 40 mg PO DAILY Qty: 90 0RF Rx Instructions: must administer with a meal/food clonidine HCl 0.1 mg tablet 0.1 mg PO BID PRN (Reason: hot flashes) Qty: 60 2RF clonazepam [Klonopin] 0.5 mg tablet 0.5 mg PO BID PRN (Reason: anxiety) Qty: 60 0RF lamotrigine [Lamictal] 150 mg tablet 150 mg PO Q12H Qty: 180 0RF aripiprazole [Abilify] 15 mg tablet 15 mg PO HS Qty: 30 2RF memantine [Namenda XR] 14 mg capsule,sprinkle,ER 24hr 14 mg PO DAILY Qty: 30 2RF ondansetron 4 mg tablet,disintegrating 4 mg PO Q8H Qty: 10 0RF Referrals Follow up/Referrals: Provider,Referral, MD [Primary Care Provider] - See instructions Clinical Impressions Clinical Impression: Nausea & vomiting, Flu-like symptoms Instructions Patient Instructions: DI for Viral Syndrome, Nausea and Vomiting-Adult, Ondansetron Discharge ED Provider: Akil Lennon General Adult HPI General Chief complaint: Upper Respiratory Infection Stated complaint: body aches/fever Time Seen by Provider: 05/29/22 17:29 History of Present Illness HPI narrative: 46-year-old female presents with flulike symptoms, complaining of body aches, subjective fever, nausea and vomiting throughout the day, reports mild loose stools as well. Denies abdominal pain, chest pain, shortness of breath, respiratory congestion. She has not had tried any treatments at home for symptomatic relief prior to this visit, she was brought in by EMS who started IV and has had a 1 L normal saline bolus Related Data Previous Rx's Medication Instructions Recorded albuterol sulfate 90 mcg/actuation 1 inh inhalation QID PRN shortness 11/28/21 aerosol inhaler of breath or wheezing #8.5 grams atorvastatin 10 mg tablet See Rx Instructions .Route 11/28/21 .COMPLEX #90 tabs azelastine 137 mcg (0.1 %) nasal 1 spray intranasal BID #30 mL 11/28/21 spray aerosol budesonide-formoterol HFA 160 2 puff inhalation BID #10.2 grams 11/28/21 mcg-4.5 mcg/actuation aerosol inhaler (Symbicort) cetirizine 10 mg tablet 10 mg PO DAILY #90 tabs 11/28/21 fluticasone propionate 50 1 spray intranasal DAILY #16 grams 11/28/21 mcg/actuation nasal spray,suspension (Flonase Allergy Relief) hydroxyzine pamoate 50 mg capsule 50 mg PO TID PRN itching 30 days 11/28/21 #90 caps mecobalamin (vitamin B12) 5,000 5,000 mcg PO DAILY #90 tabs 11/28/21 mcg disintegrating tablet vilazodone 40 mg tablet 40 mg PO DAILY #90 tabs 11/28/21 clonidine HCl 0.1 mg tablet 0.1 mg PO BID PRN hot flashes #60 02/12/22 tabs clonazepam 0.5 mg tablet (Klonopin) 0.5 mg PO BID PRN anxiety #60 tabs 03/26/22 aripiprazole 15 mg tablet (Abilify) 15 mg PO HS #30 tabs 04/09/22 lamotrigine 150 mg table
[2022-05-29 17:55] VITALS: BP 165/76; PULSE 55; RESP 17; TEMP 37.1; O2SAT 96; BMI 24.5
[2022-05-29 17:56] LABS: Coronavirus 19, PCR Not Detected (NotDetected); Influenza A, PCR Not Detected (NotDetected); Influenza B, PCR Not Detected (NotDetected)
[2022-05-29 18:09] VITALS: BP 110/74; PULSE 74; RESP 20; O2SAT 98
[2022-05-29 18:30] VITALS: BP 112/80; PULSE 75; RESP 18; O2SAT 99
[2022-05-29 18:59] VITALS: BP 112/80; PULSE 75; RESP 17; TEMP 37.2; O2SAT 98
== END 2022-05-29 19:20 | disposition home or self-care (01) ==
PROVIDERS: Emergency Provider Emergency Medicine
DX: J11.1 Influenza due to unidentified influenza virus with other respiratory manifestations (principal); Z88.0 Allergy status to penicillin; Z88.6 Allergy status to analgesic agent
CPT/HCPCS: 96374; 99284; C9803; J2405; U0003; U0005

== ENCOUNTER → 2022-12-05 14:06 | Outpatient (CLI) | payer MEDICAID, SELFPAY | PROVIDERS: PCP Student in an Organized Health Care Education/Training Program; Visit Provider Student in an Organized Health Care Education/Training Program | DX: N93.9 Abnormal uterine and vaginal bleeding, unspecified (principal) | CPT/HCPCS: 87210 ==

== ENCOUNTER → 2022-12-05 23:23 | Outpatient (CLI) | payer MEDICAID, SELFPAY ==
[2022-12-08 21:19] LABS: Neisseria gonorrhoeae, NAA Negative (Negative)
== END ==
PROVIDERS: PCP Student in an Organized Health Care Education/Training Program; Visit Provider Student in an Organized Health Care Education/Training Program
DX: N93.9 Abnormal uterine and vaginal bleeding, unspecified (principal); R30.0 Dysuria
CPT/HCPCS: 87086; 87491; 87591

== ENCOUNTER → 2022-12-16 23:20 | Outpatient (CLI) | payer MEDICAID, SELFPAY ==
[2022-12-16 19:49] LABS: Alanine Aminotransferase 17 U/L (12-78); Albumin Level 4.6 g/dl (3.5-5.0); Albumin/Globulin Ratio 1.9 (1.1-1.8); Alkaline Phosphatase 86 U/L (38-126); Anion Gap 17.2 mEq/L (5-15); Aspartate Amino Transferase 26 U/L (14-36); Bilirubin,Total 0.4 mg/dl (0.2-1.3); Blood Urea Nitrogen 8 mg/dl (7-17); Calcium 9.8 mg/dl (8.4-10.2); Carbon Dioxide 25 mmol/L (22.0-30.0); Chloride 102 mmol/L (98-107); Cholesterol 194 mg/dl (140-200); Estimated Glomerular Filt Rate 77 ml/min (>60); GFR (African American) 93 ML/MIN (>60); Globulin 2.4 g/dL (1.3-3.2); Glucose 79 mg/dl (74-100); HDL Cholesterol 65 mg/dl (40-60); Potassium 4.2 mmoL/L (3.5-5.1); Sodium 140 mmol/L (136-145); Triglycerides 121 mg/dl (30-150); VLDL Cholesterol 24 mg/dL (0-40)
[2022-12-16 19:50] LABS: Basophils # 0.1 K/mm3 (0-0.2); Basophils % 0.4 % (0.1-2.0); Eosinophils # 0.6 K/mm3 (0.0-0.4); Eosinophils % 5.5 % (0.1-12.0); Hematocrit 44.8 % (37.0-47.0); Lymphocytes # 2.5 K/mm3 (0.7-4.5); Lymphocytes % 22.3 % (10-50); Mean Corpuscular HGB Conc 33.5 g/dL (31.8-35.4); Mean Corpuscular Hemoglobin 30.1 pg (27.0-31.2); Mean Corpuscular Volume 89.8 fl (81-99); Mean Platelet Volume 10.3 fl (7.4-10.4); Monocytes # 0.5 K/mm3 (0.1-1.0); Monocytes % 4.4 % (1.7-9.3); Neutrophils # 7.5 K/mm3 (1.8-7.8); Neutrophils % 67.3 % (37.0-80.0); Platelet Count 234 K/mm3 (142-424); Red Blood Count 4.99 M/mm3 (4.20-5.40); Red Cell Distribution Width 13.7 % (11.5-17.5); White Blood Count 11.1 K/mm3 (4.8-10.8)
[2022-12-16 20:02] LABS: C-Reactive Protein 0.7 mg/L (0-4); Direct LDL Cholesterol 100.87 mg/dL (100-129)
[2022-12-16 20:09] LABS: Erythrocyte Sedimentation Rate 6 mm/hr (0-20)
[2022-12-16 20:11] LABS: 25-OH Vitamin D, Total 43.6 ng/mL (30-100)
[2022-12-16 20:12] LABS: Free T4 (Free Thyroxine) 1.46 ng/dl (0.78-2.19)
[2022-12-16 20:19] LABS: Thyroid Stimulating Hormone 1.16 uIU/mL (0.465-4.68)
== END ==
PROVIDERS: PCP Student in an Organized Health Care Education/Training Program; Visit Provider Student in an Organized Health Care Education/Training Program
DX: R21 Rash and other nonspecific skin eruption (principal); L30.9 Dermatitis, unspecified; Z13.29 Encounter for screening for other suspected endocrine disorder
CPT/HCPCS: 80053; 80061; 82306; 84439; 84443; 85025; 85651; 86140

== ENCOUNTER 2023-03-07 19:53 | Emergency (ER) | payer MEDICAID, SELFPAY ==
[2023-03-07 20:10] VITALS: BP 107/76; PULSE 86; RESP 18; TEMP 37; O2SAT 96; BMI 21.5
--- NOTE | 2023-03-07 20:25 | EXP.UTC ---
Discharge Plan Disposition Patient Disposition: Home, Self-Care Condition: Good Prescriptions Prescriptions: New azithromycin [Zithromax] 250 mg tablet 250 mg PO UD DOSE PK Qty: 6 0RF Rx Instructions: Take two (2) tablets today, then one (1) tablet days #2 thru #5 methylprednisolone 4 mg Tablets,Dose Pack 4 mg PO DIRECTED Qty: 21 0RF ondansetron 4 mg Tablet,Disintegrating 4 mg PO Q8H PRN (Reason: Nausea) Qty: 12 0RF No Action Abilify Maintena 300 mg suspension,extended rel syring 300 mg IM QMONTH Patient Comments: INJECT 300 MG INTRAMUSCULARLY ONCE a MONTH DIRECTED aripiprazole 10 mg tablet 10 mg PO DAILY Patient Comments: TAKE ONE TABLET BY MOUTH EVERY MORNING DIRECTED stop 14 DAYS AFTER receiving Abilify injection trazodone 50 mg tablet 50 mg PO HS metronidazole 500 mg tablet 500 mg PO BID 14 Days Qty: 28 0RF Referrals Follow up/Referrals: Kamla Mcneil PA [Primary Care Provider] - See instructions Activity Restrictions/Add. Instructions Additional Instructions/Restrictions: Drink plenty of fluids. Take tylenol or ibuprofen for pain or fever. Take the medications as directed. Follow up with your regular doctor. GO TO THE ER FOR ANY WORSENING SYMPTOMS Clinical Impressions Clinical Impression: Sinusitis, Bronchitis, Acute viral syndrome Stand Alone Forms Stand Alone Forms: Work/School Release Instructions Patient Instructions: DI for Sinusitis, DI for Viral Syndrome Discharge ED Provider: Tim Rosas [facility] General Stated complaint: possible sinus infection Mode of Arrival: Ambulatory Source of Information: Patient Limitations: No Limitations Time Seen by Provider: 03/07/23 20:25 Description of Symptoms (Recalled from Triage Doc. by RN): Sinus MCKEE, Temp, throwing up HEENT Symptoms (Recalled from RN notes): Yes Resp Symptoms (Recalled from RN notes): No Skin Symptoms (Recalled from RN notes): No MS Symptoms (Recalled from RN notes): No Functional Status (Recalled from RN notes): n/a History of Present Illness Provider Complaint: He states that for the past 2 days he has had sinus congestion, cough, and congestion. Related Data Home Medications Medication Instructions Recorded Confirmed aripiprazole 10 mg tablet 10 mg PO DAILY 01/21/23 01/21/23 aripiprazole 300 mg suspension, 300 mg IM QMONTH 01/21/23 01/21/23 extended rel. intramuscular syringe (Teresa Eng) trazodone 50 mg tablet 50 mg PO HS 01/21/23 01/21/23 Previous Rx's Medication Instructions Recorded metronidazole 500 mg tablet 500 mg PO BID 14 days #28 tabs 01/21/23 azithromycin 250 mg tablet 250 mg PO UD DOSE PK #6 tabs 03/07/23 (Zithromax) methylprednisolone 4 mg tablets in 4 mg PO DIRECTED #21 tabs 03/07/23 a dose pack ondansetron 4 mg disintegrating 4 mg PO Q8H PRN Nausea #12 tabs 03/07/23 tablet Allergies Allergy/AdvReac Type Severity Reaction Status Date / Time Penicillins [PENICILLINS] Allergy Severe ANAPHYLACTI Verified 03/07/23 20:22 C hydrocodone [HYDROCODONE] Allergy Unknown ITCHING Verified 03/07/23 20:22 Worker's Comp Is this a Worker's Comp case?: No [facility] Disclaimer: The information contained in this section may have been updated after the patient was seen, as this information can be updated by other users. Medical History (Updated 03/07/23 @ 20:30 by Tim Rosas APRN) Agoraphobia with panic attacks Anxiety delivery delivered Surgical History History of partial hysterectomy Family History Other Asthma Cancer Diabetes FHx: mental illness Heart attack Stroke Social History Smoking Status: Current every day smoker tobacco type: e-cigarettes alcohol intake: never substance use type: marijuana curren
[2023-03-07 20:34] VITALS: BP 107/76; PULSE 86; RESP 18; TEMP 37; O2SAT 96
== END 2023-03-07 20:34 | disposition home or self-care (01) ==
PROVIDERS: Emergency Provider Nurse Practitioner Family; PCP Physician Assistant
DX: J20.9 Acute bronchitis, unspecified (principal); J01.90 Acute sinusitis, unspecified; B34.9 Viral infection, unspecified; F17.290 Nicotine dependence, other tobacco product, uncomplicated; F40.01 Agoraphobia with panic disorder; F41.9 Anxiety disorder, unspecified
CPT/HCPCS: 99212; 99214; G0463

== ENCOUNTER → 2023-06-03 21:30 | Outpatient (CLI) | payer MEDICAID, SELFPAY ==
[2023-06-03 19:04] LABS: Basophils # 0.1 K/mm3 (0-0.2); Basophils % 0.8 % (0.1-2.0); Eosinophils # 0.1 K/mm3 (0.0-0.4); Eosinophils % 1.8 % (0.1-12.0); Hematocrit 40.1 % (37.0-47.0); Hemoglobin 13.5 g/dL (12.2-16.2); Lymphocytes # 2.2 K/mm3 (0.7-4.5); Mean Corpuscular HGB Conc 33.6 g/dL (31.8-35.4); Mean Corpuscular Hemoglobin 31.9 pg (27.0-31.2); Mean Corpuscular Volume 94.8 fl (81-99); Mean Platelet Volume 9.5 fl (7.4-10.4); Monocytes # 0.4 K/mm3 (0.1-1.0); Monocytes % 5.7 % (1.7-9.3); Neutrophils # 3.8 K/mm3 (1.8-7.8); Neutrophils % 57.7 % (37.0-80.0); Platelet Count 213 K/mm3 (142-424); Red Blood Count 4.23 M/mm3 (4.20-5.40); Red Cell Distribution Width 13.9 % (11.5-17.5); White Blood Count 6.6 K/mm3 (4.8-10.8)
[2023-06-03 19:16] LABS: Alanine Aminotransferase 31 U/L (12-78); Albumin Level 4.1 g/dl (3.5-5.0); Alkaline Phosphatase 75 U/L (38-126); Aspartate Amino Transferase 30 U/L (14-36); Bilirubin,Total 0.2 mg/dl (0.2-1.3); Blood Urea Nitrogen 15 mg/dl (7-17); Calcium 8.6 mg/dl (8.4-10.2); Carbon Dioxide 28 mmol/L (22.0-30.0); Chloride 104 mmol/L (98-107); Estimated Glomerular Filt Rate 77 ml/min (>60); GFR (African American) 93 ML/MIN (>60); Globulin 2.1 g/dL (1.3-3.2); Glucose 91 mg/dl (74-100); Sodium 136 mmol/L (136-145); Total Protein,Serum 6.2 g/dl (6.3-8.2)
== END ==
PROVIDERS: PCP Physician Assistant; Visit Provider Family Medicine
DX: R41.89 Other symptoms and signs involving cognitive functions and awareness (principal); R51.9 Headache, unspecified; R42 Dizziness and giddiness
CPT/HCPCS: 80053; 85025

== ENCOUNTER 2023-08-08 10:46 | Emergency (ER) | payer MEDICAID, SELFPAY ==
--- NOTE | 2023-08-08 11:05 | XR_ITS ---
PROCEDURE INFORMATION: Exam: XR Left Humerus Exam date and time: 08/08/2023 11:06 AM Age: 48 years old Clinical indication: Lower or forearm and upper arm; Patient HX: Fall, left arm pain TECHNIQUE: Imaging protocol: Radiologic exam of the left humerus. Views: 2 or more views. COMPARISON: DX XR CHEST 2V 08/29/2020 10:26 AM FINDINGS: Bones/joints: Normal. Soft tissues: Normal. IMPRESSION: No acute findings.
--- NOTE | 2023-08-08 11:05 | XR_ITS ---
PROCEDURE INFORMATION: Exam: XR Left Forearm Exam date and time: 08/08/2023 11:08 AM Age: 48 years old Clinical indication: Lower or forearm and upper arm; Patient HX: Fall, left arm pain TECHNIQUE: Imaging protocol: Radiologic exam of the left forearm. Views: 2 views. COMPARISON: No relevant prior studies available. FINDINGS: Bones/joints: Normal. Soft tissues: Normal. IMPRESSION: No acute findings.
[2023-08-08 11:07] VITALS: BP 117/82; PULSE 86; RESP 18; TEMP 36.6; O2SAT 97; BMI 24.5
--- NOTE | 2023-08-08 11:25 | HMH.EDGENADL ---
Discharge Plan Disposition Patient Disposition: Home, Self-Care Prescriptions Prescriptions: New ibuprofen 600 mg tablet 600 mg PO Q8H PRN (Reason: pain) 7 Days Qty: 21 0RF cyclobenzaprine 5 mg tablet 5 mg PO TID PRN (Reason: muscle spasm) 5 Days Qty: 15 0RF No Action buspirone 7.5 mg tablet 7.5 mg PO TID Qty: 90 2RF Vraylar 3 mg capsule 3 mg PO DAILY Qty: 30 2RF mirtazapine 30 mg tablet 30 mg PO HS Qty: 30 2RF famotidine 20 mg tablet 20 mg PO DAILY Qty: 30 2RF pantoprazole 40 mg tablet,delayed release (DR/EC) 40 mg PO DAILY Qty: 30 2RF meclizine 25 mg tablet,chewable See Rx Instructions .ROUTE .COMPLEX Qty: 90 0RF Dose Instruction: TAKE 1 TABLET BY MOUTH THREE TIMES DAILY MAY CAUSE DROWSINESS Rx Instructions: TAKE 1 TABLET BY MOUTH THREE TIMES DAILY MAY CAUSE DROWSINESS scopolamine base 1 mg over 3 days patch 3 day 1 patch transdermal Q3D PRN (Reason: nausea and vomiting) Qty: 4 0RF Referrals Follow up/Referrals: Marya Barrera APRN [Primary Care Provider] - See instructions Activity Restrictions/Add. Instructions Additional Instructions/Restrictions: No evidence of fracture or dislocation. Please ice the area take your medications as prescribed and return to the emergency part with any worsening symptoms. Clinical Impressions Clinical Impression: Contusion of arm, left Stand Alone Forms Stand Alone Forms: Work/School Release Discharge ED Provider: Natalio Presley General Adult HPI General Chief complaint: Extremity Injury, Upper Stated complaint: AO fall left arm 08/07 Time Seen by Provider: 08/08/23 11:20 Mode of Arrival: Ambulatory Source of Information: Patient Limitations: No Limitations Description of Symptoms (Recalled from ER Triage Doc. by RN): fell yesterday hurt left arm History of Present Illness HPI narrative: Patient is a 48-year-old female who fell down stairs yesterday landing directly onto adducted left arm. Struck the middle aspect of the left humeral area. Had no pain until today when she was at work with any type of movement had some tightness. Denies any change in movement or sensation. Denies injuries elsewhere. Related Data Previous Rx's Medication Instructions Recorded buspirone 7.5 mg tablet 7.5 mg PO TID #90 tabs 05/13/23 cariprazine 3 mg capsule (Vraylar) 3 mg PO DAILY #30 caps 05/13/23 famotidine 20 mg tablet 20 mg PO DAILY #30 tabs 05/13/23 mirtazapine 30 mg tablet 30 mg PO HS #30 tabs 05/13/23 pantoprazole 40 mg tablet,delayed 40 mg PO DAILY #30 tabs 05/13/23 release meclizine 25 mg chewable tablet See Rx Instructions .Route 06/16/23 .COMPLEX #90 ea scopolamine base 1 mg over 3 days 1 patch transdermal Q3D PRN nausea 08/05/23 transdermal patch and vomiting #4 ea cyclobenzaprine 5 mg tablet 5 mg PO TID PRN muscle spasm 5 08/08/23 days #15 tabs ibuprofen 600 mg tablet 600 mg PO Q8H PRN pain 7 days #21 08/08/23 tabs Allergies Allergy/AdvReac Type Severity Reaction Status Date / Time Penicillins [PENICILLINS] Allergy Severe ANAPHYLACTI Verified 06/03/23 14:49 C hydrocodone [HYDROCODONE] Allergy Unknown ITCHING Verified 06/03/23 14:49 PFS PFS Disclaimer: The information contained in this section may have been updated after the patient was seen, as this information can be updated by other users. Medical History Agoraphobia with panic attacks Anxiety delivery delivered Surgical History History of partial hysterectomy Family History Other Asthma Cancer Diabetes FHx: mental illness Heart attack Stroke Social History Smoking Status: Current every day smoker tobacco type: e-cigarettes alcohol intake: never substance use type: marijuana current occupational status: other Travel in the last 8 weeks: None household members: family housing: house number of children: 3 current occupation: factory ROS Obtained: Yes All systems reviewed & no additional complaints except as documented Physical Exam General General appearance: alert Respiratory Respiratory exam: Present normal lung sounds bilaterally Cardiovascular Cardiovascular exam: Present regular rate Extremities Exam Extremities exam: Present other (Left upper extremity normal external exam no soft tissue swelling ecchymosis etc. she is tender left lateral aspect of the mid humerus there is normal range of motion of the shoulder elbow etc.) Neurological Exam Neurological exam: Present alert Medical Decision Making Mushtaq Inquiry Pt receiving controlled substance: No Vital Signs: 08/08/23 11:07 Temperature 97.9 F Temperature Source Oral Pulse Rate [Right Radial] 86 Respiratory Rate 18 Blood Pressure [Right Arm] 117/82 Blood Pressure Mean [Right Arm] 93 02 Sat by Pulse Oximetry 97 Oxygen Delivery Method Room Air Orders (Tests/Meds): ORDERS Category Date Time Status Forearm XR left 2 views [XR forearm LT 2V] Stat Exams 08/08/23 11:05 Taken XR humerus LT Stat Exams 08/08/23 11:05 Taken Medical Decision Narrative: Patient is a 48-year-old female with a normal upper extremity exam she is tender on the left lateral aspect of the upper arm but no soft tissue abnormalities has normal neurovascular and motor exam. X-rays performed to person interpreted shows no acute fracture or dislocation patient treated supportively and discharged in stable condition with prescription of NSAID and muscle laxer. Critical Care Critical Care Time Critical Care Time: No
[2023-08-08 11:33] VITALS: BP 129/77; PULSE 81; RESP 18; TEMP 36.6
== END 2023-08-08 11:36 | disposition home or self-care (01) ==
PROVIDERS: Emergency Provider Student in an Organized Health Care Education/Training Program; PCP Nurse Practitioner Family
DX: S40.022A Contusion of left upper arm, initial encounter (principal); F17.290 Nicotine dependence, other tobacco product, uncomplicated; W10.9XXA Fall (on) (from) unspecified stairs and steps, initial encounter
CPT/HCPCS: 73060; 73090; 99284

== ENCOUNTER 2024-05-04 14:42 | Outpatient (CLI) | payer MEDICAID, SELFPAY ==
--- NOTE | 2024-05-04 14:50 | MM_ITS ---
PROCEDURE INFORMATION: Exam: MG Bilateral Screening 3D Mammography Exam date and time: 05/04/2024 2:39 PM Age: 48 years old Clinical indication: Screening examination TECHNIQUE: Imaging protocol: Bilateral Screening tomosynthesis and 2D mammography including computer-aided detection (CAD) when performed. COMPARISON: 1. MG DMBAV DIG MAMM- DAPHNE ADD VIEWS W/CAD 06/18/2017 1:46 PM 2. MG DMSB DIG MAMM-SCREEN DAPHNE W/CAD 05/25/2017 1:42 PM FINDINGS: MAMMOGRAPHY: Breast composition: The breasts are heterogeneously dense, which may obscure small masses. Mass: None. Architectural distortion: None. Calcifications: No suspicious calcifications. Asymmetric density: None. Skin thickening: None. Axillary adenopathy: None. IMPRESSION: No mammographic evidence of malignancy. Annual screening is recommended unless otherwise clinically indicated. ASSESSMENT: BI-RADS Category 1: Negative.
== END 2024-05-04 23:59 | disposition home or self-care (01) ==
LOC: RAD 14:43
PROVIDERS: PCP Physician Assistant; Visit Provider Physician Assistant
DX: Z12.31 Encounter for screening mammogram for malignant neoplasm of breast (principal)
CPT/HCPCS: 77063; 77067

== ENCOUNTER 2024-07-20 09:12 | Emergency (ER) | payer MEDICAID, SELFPAY ==
[2024-07-20 09:30] VITALS: BP 149/92; PULSE 81; RESP 22; TEMP 36.8; O2SAT 97; BMI 25.3
[2024-07-20 09:54] LABS: UTC Influenza A Antigen Negative (Negative); UTC Influenza B Antigen Negative (Negative)
--- NOTE | 2024-07-20 10:05 | EXP.UTC ---
Discharge Plan Disposition Patient Disposition: Home, Self-Care Condition: Good Prescriptions Prescriptions: No Action varenicline tartrate 0.5 mg (11)- 1 mg (42) tablets,dose pack 1 tab PO DAILY Patient Comments: TAKE 1 STARTER PACK BY MOUTH EVERY DAY DIRECTED FOR 28 DAYS FOR SMOKING CESSATION Lybalvi 15-10 mg tablet 1 tab PO DAILY Patient Comments: TAKE 1 TABLET BY MOUTH ONCE DAILY DIRECTED FOR 30 DAYS FOR BIPOLAR DISORDER Referrals Follow up/Referrals: Kamla Mcneil PA [Primary Care Provider] - See instructions Activity Restrictions/Add. Instructions Additional Instructions/Restrictions: Self isolate until COVID swab has been resulted. No sign of a bacterial infection. Likely viral. Viruses can take 7-14 days to run their course. Nasal saline and bulb syringe or nose Marisa to remove nasal drainage to help with nasal congestion. Hard to eat, drink, sleep with nasal congestion so important to keep this cleaned out. Monitor temp. Tylenol or Motrin as needed for pain or fever Encourage fluids, water, Gatorade, Powerade, Pedialyte if /toddler/child Warm salt water gargles Warm fluids Sore throat lozenges Sleep elevated Humidifier/vaporizer Follow-up immediately for new or worsening symptoms or no noticeable improvement over the next 48-72 hours. Clinical Impressions Clinical Impression: Upper respiratory tract infection Qualifiers: URI type: unspecified viral URI Qualified Code(s): J06.9 - Acute upper respiratory infection, unspecified Stand Alone Forms Stand Alone Forms: Work/School Release Instructions Patient Instructions: DI for Viral Upper Respiratory Infection -- Adult Print Language Print Language: French [facility]charge [facility] [place] [facility] HPI General Stated complaint: v/d bpdy aches Mode of Arrival: Ambulatory Source of Information: Patient Limitations: No Limitations Time Seen by Provider: 07/20/24 10:04 Description of Symptoms (Recalled from Triage Doc. by RN): PATIENT C/O VOMITING, FEVER, BODY ACHES, SOA, AND RIGHT HIP PAIN SINCE YESTERDAY HEENT Symptoms (Recalled from RN notes): No Resp Symptoms (Recalled from RN notes): No Skin Symptoms (Recalled from RN notes): No MS Symptoms (Recalled from RN notes): No Functional Status (Recalled from RN notes): WNL History of Present Illness Provider Complaint: 48-year-old female presents for complaints of body aches, vomiting, fever, coughing, and right hip pain since yesterday. Patient states she has been exposed to COVID. Patient states she has medicine for nausea she just wants tested Related Data Home Medications ?Medication ?Instructions ?Recorded ?Confirmed olanzapine 15 mg-samidorphan 10 mg 1 tab PO DAILY 07/20/24 07/20/24 tablet (Lybalvi) varenicline tartrate 0.5 mg (11)-1 1 tab PO DAILY 07/20/24 07/20/24 mg (42) tablets in a dose pack Allergies Allergy/AdvReac Type Severity Reaction Status Date / Time Penicillins (PENICILLINS) Allergy Severe ANAPHYLACTI Verified 02/18/24 09:22 C hydrocodone (HYDROCODONE) Allergy Unknown ITCHING Verified 02/18/24 09:22 Worker's Comp Is this a Worker's Comp case?: No [facility] Disclaimer: The information contained in this section may have been updated after the patient was seen, as this information can be updated by other users. Medical History , [employer]) delivery delivered Agoraphobia with panic attacks Anxiety Surgical History , [employer]) History of partial hysterectomy Family History , [employer]) Diabetes Heart attack FHx: mental illness Cancer Stroke Asthma Social History , [employer]) Smoking Status: Current every day smoker tobacco type: e-cigarettes alcohol intake: never substance use type: marijuana current occupational status: other Travel in the last 8 weeks: None household members: family housing: house number of children: 3 current occupation: factory Have you lived/traveled outside [place] in past 30 days?: No Contact w/someone who lives/traveled outside US past 30 days?: No Exposure to someone with infectious disease in past 14 days?: No Do you have a fever (greater than 100.4 F or 38 C)?: No Have you tested positive for COVID-19: No Exposed to someone with COVID-19 in past 14 days?: No Do you have a sore throat?: Yes Do you have a cough?: Yes Do you have any weakness?: No Do you have any diarrhea?: No Are you experiencing any unusual bleeding?: No Do you have any muscle aches/pain?: No Do you have any abdominal pain?: No Are you experiencing loss of taste or smell?: No ROS Obtained: Yes Systems reviewed as appropriate & no additional complaints except as documented Constitutional Constitutional: Reports system reviewed and no additional complaints, except as documented, Reports as per HPI, Reports body ache, Reports fever(s) and Reports headache(s) ENT Ears, Nose, Mouth, and Throat: Reports system reviewed and no additional complaints, except as documented, Reports as per HPI, Reports headache(s), Reports nasal discharge, Reports post nasal drip, Reports sinus pain, Reports sinus pressure and Reports sore throat Respiratory Respiratory: Reports system reviewed and no additional complaints, except as documented, Reports as per HPI, Reports cough and Reports cough with sputum production Gastrointestinal Gastrointestingal: Reports system reviewed and no additional complaints, except as documented, as per HPI, nausea and vomiting Neurologic Neurologic: Reports system reviewed and no additional complaints, except as documented and Reports headache(s) Physical Exam General General appearance: alert and in no apparent distress Eye Eye exam: Present normal appearance ENT ENT exam: Present normal exam, normal oropharynx, mucous membranes moist and TM's normal bilaterally Respiratory Respiratory exam: Present normal lung sounds bilaterally Cardiovascular Cardiovascular exam: Present regular rate and normal rhythm Abdominal Exam Abdominal exam: Present soft and normal bowel sounds Neurological Exam Neurological exam: Present alert and oriented X3 Skin Skin exam: Present warm and intact Medical Decision Making Medical Records Medical records reviewed: Yes I reviewed the patient's medical records. Screening: Per USPSTF and CDC recommendations, given the prevalence of disease in our region, it is our hospital?s policy to screen for HIV and viral Hepatitis for all patients aged 18 and over and those with ongoing risk factors. Mushtaq Inquiry Pt receiving controlled substance: No Vital Signs: 07/20/24 09:30 Temperature 98.3 F Temperature Source Oral Pulse Rate [Left Brachial] 81 Respiratory Rate 22 Blood Pressure [Left Arm] 149/92 H Blood Pressure Mean [Left Arm] 111 Blood Pressure Source [Left Arm] Automatic Cuff Blood Pressure Position [Left Arm] Sitting 02 Sat by Pulse Oximetry 97 Oxygen Delivery Method Room Air Lab Data Lab results reviewed: Yes I reviewed the patient's lab results. Lab Results 07/20/24 09:33: Influenza Type A Ag Negative, Influenza Type B Ag Negative
[2024-07-20 10:13] VITALS: BP 149/92; PULSE 81; RESP 22; TEMP 36.8; O2SAT 97
[2024-07-20 10:22] LABS: Coronavirus 19, PCR Not Detected (NotDetected); Influenza B, PCR Not Detected (NotDetected)
[2024-07-20 13:46] LABS: Influenza A, PCR Detected (NotDetected)
== END 2024-07-20 10:17 | disposition home or self-care (01) ==
PROVIDERS: Emergency Provider Nurse Practitioner Family; PCP Physician Assistant
DX: J06.9 Acute upper respiratory infection, unspecified (principal)
CPT/HCPCS: 87636; 87804; 99213; G0381

== ENCOUNTER 2025-03-10 18:31 | Emergency (ER) | payer MEDICAID, SELFPAY ==
[2025-03-10] VITALS (9 sets, daily range): BP systolic 147–175; BP diastolic 51–95; PULSE 55–88; RESP 11–18; TEMP 36.6–37.2; O2SAT 94–97; BMI 22.6
--- NOTE | 2025-03-10 19:24 | PC.NURSE ---
Pt cardiac exercise specialist not working, pt does not have chest pain, HR 68, cardiac exercise specialist unplugged due to malfunction at this time.
--- NOTE | 2025-03-10 19:47 | CT_ITS ---
PROCEDURE INFORMATION: Exam: CT Abdomen And Pelvis With Contrast Exam date and time: 03/10/2025 8:13 PM Age: 49 years old Clinical indication: Abdominal pain; Additional info: Abdominal pain, nausea, vomiting TECHNIQUE: Imaging protocol: Computed tomography of the abdomen and pelvis with contrast. Radiation optimization: All CT scans at this facility use at least one of these dose optimization techniques: automated exposure control; mA and/or kV adjustment per patient size (includes targeted exams where dose is matched to clinical indication); or iterative reconstruction. Contrast material: ISOVUE; Contrast volume: 75 ml; Contrast route: IV; COMPARISON: DX XR CHEST 2V 08/29/2020 10:26 AM FINDINGS: Liver: Unremarkable. No mass. Gallbladder and biliary ducts: Unremarkable. No calcified stones. No ductal dilation. Pancreas: Unremarkable. No ductal dilation. Spleen: Unremarkable. No splenomegaly. Adrenal glands: 1.5 cm left adrenal nodule. Unremarkable right adrenal gland. Kidneys and ureters: No nephroureterolithiasis. No hydronephrosis. Stomach and bowel: Nodular mucosal enhancement from cecum to distal descending colon. Nonobstructive pattern. Appendix: No evidence of appendicitis. Intraperitoneal space: Unremarkable. No free air. No significant fluid collection. Vasculature: Unremarkable. No abdominal aortic aneurysm. Lymph nodes: Unremarkable. No enlarged lymph nodes. Urinary bladder: Decompressed. Reproductive: Unremarkable as visualized. Bones/joints: Unremarkable. No acute fracture. Soft tissues: Unremarkable. IMPRESSION: 1. Non diverticular pancolitis with nodular mucosal thickening. Correlate for C difficile colitis symptoms. 2. Left adrenal nodule.
[2025-03-10 19:53] LABS: Hematocrit 43.2 % (37.0-47.0); Hemoglobin 14.8 g/dL (12.2-16.2); Immature Granulocytes % 0.3 %; Mean Corpuscular HGB Conc 34.3 g/dL (31.8-35.4); Mean Corpuscular Hemoglobin 31.1 pg (27.0-31.2); Mean Corpuscular Volume 90.8 fl (81-99); Nucleated Red Blood Cells % 0 %; Platelet Count 227 K/mm3 (142-424); Red Blood Count 4.76 M/mm3 (4.20-5.40); Red Cell Distribution Width-SD 45.1 fL; White Blood Count 8.9 K/mm3 (4.8-10.8)
[2025-03-10 19:56] LABS: Albumin Level 4.7 g/dl (3.5-5.0); Chloride 100 mmol/L (98-107); Potassium 3.7 mmoL/L (3.5-5.1); Sodium 138 mmol/L (136-145)
[2025-03-10 19:59] LABS: Alanine Aminotransferase 15 U/L (12-78); Albumin/Globulin Ratio 1.8 (1.1-1.8); Alkaline Phosphatase 70 U/L (38-126); Anion Gap 15.7 mEq/L (5-15); Aspartate Amino Transferase 34 U/L (14-36); Bilirubin,Total 0.6 mg/dl (0.2-1.3); Blood Urea Nitrogen 13 mg/dl (7-17); Carbon Dioxide 26 mmol/L (22.0-30.0); Creatinine Clearance Estimated 74 mL/min (50-200); Creatinine,Serum 0.80 mg/dl (0.52-1.04); Estimated Glomerular Filt Rate 77 ml/min (>60); GFR (African American) 93 ML/MIN (>60); Globulin 2.6 g/dL (1.3-3.2); Lipase 44 U/L (23-300); Total Protein,Serum 7.3 g/dl (6.3-8.2)
[2025-03-10] MEDS: ONDANSETRON 4MG/2ML VIAL 4 MG IV ×2 (19:59→22:02)
[2025-03-10] MEDS: LACTATED RINGERS 1000ML 1,000 ML 999 ML IV (19:59)
[2025-03-10 20:00] LABS: Calcium 9.5 mg/dl (8.4-10.2); Glucose 155 mg/dl (74-100)
[2025-03-10 20:04] LABS: Microscopic, Urine URINE MICROSCOPIC (MICROSCOPIC)
[2025-03-10 20:06] LABS: Color,Urine YELLOW (Yellow); Glucose,Urine (UA) Negative (Negative); Ketones,Urine 2+ (Negative); Leukocyte Esterase,Urine Negative (Negative); PH,Urine 8.5 (5.0-8.5); Protein,Urine TRACE (Negative); Specific Gravity, Urine 1.015 (1.005-1.030); Urobilinogen,Urine 1.0 EU/dl (0.2)
[2025-03-10 20:13] LABS: Bilirubin,Urine Negative (Negative)
[2025-03-10] MEDS: SODIUM CHLORIDE 0.9% 10ML SYR (RAD ONLY) 10 ML IV (20:13)
[2025-03-10] MEDS: IOPAMIDOL-370 (76%);100ML BOTTLE 75 ML IV (20:13)
[2025-03-10 20:32] LABS: Amorphous Sediment,Urine 3+ /lpf
[2025-03-10 20:33] LABS: Bacteria,Urine 1+ /lpf
--- NOTE | 2025-03-10 21:44 | PC.NURSE ---
Patient assisted to the restroom and back.
--- NOTE | 2025-03-10 22:20 | HMH.EDGENADL ---
Discharge Plan Disposition Patient Disposition: Left Against Medical Advice Condition: Undetermined Prescriptions Prescriptions: New ondansetron 4 mg tablet,disintegrating 4 mg PO Q6H PRN (Reason: nausea and vomiting) Qty: 20 0RF No Action varenicline tartrate 0.5 mg (11)- 1 mg (42) tablets,dose pack 1 tab PO DAILY Patient Comments: TAKE 1 STARTER PACK BY MOUTH EVERY DAY DIRECTED FOR 28 DAYS FOR SMOKING CESSATION Lybalvi 15-10 mg tablet 1 tab PO DAILY Patient Comments: TAKE 1 TABLET BY MOUTH ONCE DAILY DIRECTED FOR 30 DAYS FOR BIPOLAR DISORDER oseltamivir [Tamiflu] 75 mg capsule 75 mg PO BID 5 Days Qty: 10 0RF Referrals Follow up/Referrals: Kamla Mcneil PA [Primary Care Provider, Medical] - See instructions Clinical Impressions Clinical Impression: Vomiting Print Language Print Language: Kittitian Discharge ED Provider: Ed Chadwick General Adult HPI General Chief complaint: Fever Stated complaint: vomiting x 2 days,fever Time Seen by Provider: 03/10/25 18:59 Mode of Arrival: Ambulatory Source of Information: Patient Description of Symptoms (Recalled from ER Triage Doc. by RN): patient presents to ED for throwing up since last night. patient also stated she has experienced burning when she uses the bathroom. History of Present Illness HPI narrative: Abdominal pain, nausea, vomiting. No diarrhea. Colitis on scan. This is a 49-year-old female patient, with past medical history of anxiety, bipolar disorder, depression, hysterectomy, and GERD, who is presenting to the emergency department today for evaluation of nausea and vomiting. Patient states that she has been experiencing nausea and vomiting over the course of the last 24 hours and she is now experiencing central/epigastric abdominal pain. She states that her vomitus is nonbloody and nonbilious in nature. She is not experiencing any diarrhea, hematochezia, or melena. No chest pain or shortness of breath. She denies urinary symptoms. Related Data Home Medications ?Medication ?Instructions ?Recorded ?Confirmed olanzapine 15 mg-samidorphan 10 mg 1 tab PO DAILY 07/20/24 07/20/24 tablet (Lybalvi) varenicline tartrate 0.5 mg (11)-1 1 tab PO DAILY 07/20/24 07/20/24 mg (42) tablets in a dose pack Previous Rx's ?Medication ?Instructions ?Recorded oseltamivir 75 mg capsule (Tamiflu) 75 mg PO BID 5 days #10 caps 07/20/24 ondansetron 4 mg disintegrating 4 mg PO Q6H PRN nausea and 03/11/25 tablet vomiting #20 tabs Allergies Allergy/AdvReac Type Severity Reaction Status Date / Time Penicillins (PENICILLINS) Allergy Severe ANAPHYLACTI Verified 02/18/24 09:22 C hydrocodone (HYDROCODONE) Allergy Unknown ITCHING Verified 02/18/24 09:22 [facility] Disclaimer: The information contained in this section may have been updated after the patient was seen, as this information can be updated by other users. Medical History , PATHOLOGY ASSISTANT) delivery delivered Agoraphobia with panic attacks Anxiety Surgical History , PATHOLOGY ASSISTANT) History of partial hysterectomy Family History , PATHOLOGY ASSISTANT) Diabetes Heart attack FHx: mental illness Cancer Stroke Asthma Social History , PATHOLOGY ASSISTANT) Smoking Status: Current every day smoker tobacco type: e-cigarettes alcohol intake: never substance use type: marijuana current occupational status: other Travel in the last 8 weeks?: None household members: family housing: house number of children: 3 current occupation: factory Have you lived/traveled outside US in past 30 days?: No Contact w/someone who lives/traveled outside US past 30 days?: No Exposure to someone with infectious disease in past 14 days?: No Do you have a fever (greater than 100.4 F or 38 C)?: No Have you tested positive for COVID-19?: No Exposed to someone with COVID-19 in past 14 days?: No Do you have a sore throat?: No Do you have a cough?: No Do you have any weakness?: No Do you have any diarrhea?: No Are you experiencing any unusual bleeding?: No Do you have any muscle aches/pain?: No Do you have any abdominal pain?: No Are you experiencing loss of taste or smell?: No Other Medical History Have you received the Flu Vaccine for this season: No Have you received the Pneumonia Vaccine: No ROS Obtained: Yes Systems reviewed as appropriate & no additional complaints except as documented Physical Exam General General appearance: other (See MDM) Respiratory Respiratory exam: Present other (See MDM) Cardiovascular Cardiovascular exam: Present other (See MDM) Neurological Exam Neurological exam: Present other (See MDM) Medical Decision Making Medical Records Medical records reviewed: Yes I reviewed the patient's medical records. Screening: Per USPSTF and CDC recommendations, given the prevalence of disease in our region, it is our hospital?s policy to screen for HIV and viral Hepatitis for all patients aged 18 and over and those with ongoing risk factors. Mushtaq Inquiry Pt receiving controlled substance: No Mushtaq was queried for this patient: No Vital Signs: 03/10/25 18:35 03/10/25 19:19 03/10/25 19:29 Temperature 97.8 F Temperature Source Temporal Artery Scan Pulse Rate 64 67 Pulse Rate [Left Radial] 61 Respiratory Rate 18 11 L 15 Blood Pressure 156/95 H 165/82 H Blood Pressure [Left Arm] 168/90 H Blood Pressure Mean [Left Arm] 116 Blood Pressure Source Blood Pressure Source [Left Arm] Automatic Cuff Blood Pressure Position [Left Arm] Sitting 02 Sat by Pulse Oximetry 97 97 96 Oxygen Delivery Method Room Air Room Air 03/10/25 19:30 03/10/25 20:02 03/10/25 20:20 Temperature Temperature Source Pulse Rate 58 L 55 L 62 Pulse Rate [Left Radial] Respiratory Rate Blood Pressure 147/61 H 148/51 H 161/77 H Blood Pressure [Left Arm] Blood Pressure Mean [Left Arm] Blood Pressure Source Blood Pressure Source [Left Arm] Blood Pressure Position [Left Arm] 02 Sat by Pulse Oximetry 96 96 96 Oxygen Delivery Method 03/10/25 20:40 03/10/25 21:00 03/10/25 22:55 Temperature 98.9 F Temperature Source Pulse Rate 60 57 L 88 Pulse Rate [Left Radial] Respiratory Rate 15 Blood Pressure 161/80 H 175/90 H 175/90 H Blood Pressure [Left Arm] Blood Pressure Mean [Left Arm] Blood Pressure Source Automatic Cuff Blood Pressure Source [Left Arm] Blood Pressure Position [Left Arm] 02 Sat by Pulse Oximetry 96 97 Oxygen Delivery Method Room Air Lab Data Lab Results 03/10/25 19:00: WBC 8.9, RBC 4.76, Hgb 14.8, Hct 43.2, MCV 90.8, MCH 31.1, MCHC 34.3, RDW 13.5, Plt Count 227, MPV 10.4, Neut % (Auto) 80.1 H, Lymph % (Auto) 16.2, [place] % (Auto) 2.9, Eos % (Auto) 0.1, Baso % (Auto) 0.4, Neut # (Auto) 7.1, Lymph # (Auto) 1.4, [place] # (Auto) 0.3, Eos # (Auto) 0.0, Baso # (Auto) 0.0, Sodium 138, Potassium 3.7, Chloride 100, Carbon Dioxide 26, Anion Gap 15.7 H, BUN 13, Creatinine 0.80, Estimated Creat Clear 74, Estimated GFR 77, Est GFR ( Amer) 93, Glucose 155 H, Calcium 9.5, Total Bilirubin 0.6, AST 34, ALT 15, Alkaline Phosphatase 70, Total Protein 7.3, Albumin 4.7, Globulin 2.6, Albumin/Globulin Ratio 1.8, Lipase 44 03/10/25 19:56: Urine Color Yellow, Urine Appearance Sl cloudy, Urine pH 8.5, Ur Specific [place] 1.015, Urine Protein Trace, Urine Glucose (UA) Negative, Urine Ketones 2+, Urine Blood Negative, Urine Nitrate Negative, Urine Bilirubin Negative, Urine Urobilinogen 1.0, Ur Leukocyte Esterase Negative, Urine RBC 3-5, Urine WBC 10-20, Ur Squamous Epith Cells 3-5, Amorphous Sediment 3+, Urine Bacteria 1+ 03/10/25 19:00 03/10/25 19:00 Orders (Tests/Meds): ED MEDICATIONS Discontinued Medications Generic Name Dose Route Start Last Admin Trade Name Freq PRN Reason Stop Dose Admin Lactated Ringer's 1,000 mls @ 999 mls/hr 03/10/25 19:47 03/10/25 21:38 Lactated Ringer's 1000 Ml Bag IV 03/10/25 20:47 Infused .Q1H1M ONE Infusion Iopamidol 75 ml 03/10/25 20:12 03/10/25 20:13 Iopamidol-370 (76%);100ml Bottle IV 03/10/25 20:13 75 ml ONCE ONE Administration Ondansetron HCl 4 mg 03/10/25 19:47 03/10/25 19:59 Ondansetron 4mg/2ml Vial IV 03/10/25 19:48 4 mg ONCE ONE Administration Ondansetron HCl 4 mg 03/10/25 21:52 03/10/25 22:02 Ondansetron 4mg/2ml Vial IV 03/10/25 21:53 4 mg ONCE ONE Administration Sodium Chloride 10 ml 03/10/25 20:12 03/10/25 20:13 Sodium Chloride 0.9% 10ml Syr (Rad Only) IV 04/09/25 20:11 10 ml NEEDED PRN Administration Maintain IV Site ORDERS Category Date Time Status CT abdomen pelvis w con Stat Cat Scan 03/10/25 19:47 Completed CBC w/Auto Diff [Complete Blood Count Auto Diff] Stat Lab 03/10/25 19:00 Completed CMP [Comprehensive Metabolic Panel] Stat Lab 03/10/25 19:00 Completed Lipase Stat Lab 03/10/25 19:00 Completed UA [Urinalysis and Microscopic] Stat Lab 03/10/25 19:56 Completed Urine Culture Stat Micro 03/10/25 19:56 Received Medical Decision Narrative: In summary, this is a 49-year-old female patient who is presenting to the emergency department today for evaluation of what she describes to be consistent with intractable nausea and vomiting with central and epigastric abdominal pain. Comorbidities include a past medical history of GERD, hysterectomy, anxiety, and bipolar disorder. On initial evaluation of the patient they were resting comfortably in no acute distress and nontoxic in appearance. They are hemodynamically stable, saturating well room air, and are neurologically intact. On physical examination of the patient she is appropriately alert and oriented with a GCS of 15. Heart and lungs are clear to auscultation bilaterally. She does have epigastric abdominal tenderness to palpation. No lower extremity erythema or edema. She is well-perfused overall. Differential diagnosis includes acute kidney injury, electrolyte derangement, gastritis, pancreatitis, cholecystitis, choledocholithiasis, urinary tract infection, among others. Initial workup included hematologic labs as well as a urinalysis and a CT scan of the abdomen and pelvis with IV contrast. Initial interventions included 1 L of lactated Ringer's with 4 mg of Zofran. Labs were personally interpreted by me and demonstrate no actionable normalities. She has no evidence of leukocytosis or actionable anemia. No significant electrolyte derangement or evidence of acute kidney injury. Urinalysis shows 10-20 white blood cells, however there is no leukocyte esterase or urine nitrates. Patient is not experiencing any urinary symptoms so I will not treat this at this time and we will send this for urine culture. CT scan of the abdomen and pelvis did result and showed nondiverticular pancolitis with mucosal thickening. They recommend correlating for C. difficile colitis. On repeat assessment of the patient she is still experiencing significant nausea and has vomited. I have readministered Zofran at this time. I have specifically asked the patient again about diarrhea and she assures me that she has not experienced any diarrhea at all. She also tells me that she has not recently had any antibiotics that would predispose her to C. difficile infection. Given that she is not able to produce a bowel movement and is not experiencing diarrhea I do not feel that it is prudent to test her for C. difficile at this time. After administering the second dose of Zofran we did attempt to feed the patient and she vomited again. I offered to admit the patient to the hospital for further antiemetic therapy to ensure that she could maintain adequate hydration and nutrition. At this point the patient refused admission and actually requested to be discharged home. I did discuss with the patient that discharge home would put her at risk for dehydration, acute kidney injury, electrolyte derangements, and potential . Despite this, she acknowledged understanding of risks and she ultimately decided to leave the hospital AGAINST MEDICAL ADVICE. I have sent Zofran to the pharmacy for the patient for continued antiemetic therapy at home. Critical Care Critical Care Time Critical Care Time: No
== END 2025-03-10 22:54 | disposition left against medical advice (07) ==
LOC: ER 18:42
PROVIDERS: Emergency Provider Student in an Organized Health Care Education/Training Program; PCP Physician Assistant
DX: R11.10 Vomiting, unspecified (principal); F41.9 Anxiety disorder, unspecified; F32.A Depression, unspecified
CPT/HCPCS: 74177; 80053; 81001; 83690; 85025; 87086; 96361; 96374; 96375; 99285; J2405; J7120; Q9967

== ENCOUNTER 2025-03-13 19:19 | Emergency (ER) | payer MEDICAID, SELFPAY ==
[2025-03-13 20:16] VITALS: BP 116/74; PULSE 78; RESP 16; TEMP 37.1; O2SAT 95; BMI 20.2
--- NOTE | 2025-03-13 20:32 | ED_ITS ---
<Statement entered by Zaina Arias DO - 03/15/25 15:55> I was consulted by the LILI, and we discussed the complexity of problems being addressed. I approve the treatment and management plan for this patient's care in the emergency department, thus performing a substantial portion of the medical decision making. Zaina Arias DO Discharge Plan Disposition Patient Disposition: Home, Self-Care Condition: Good Prescriptions Prescriptions: No Action ondansetron 4 mg tablet,disintegrating 4 mg PO Q6H PRN (Reason: nausea and vomiting) Qty: 20 0RF varenicline tartrate 0.5 mg (11)- 1 mg (42) tablets,dose pack 1 tab PO DAILY Patient Comments: TAKE 1 STARTER PACK BY MOUTH EVERY DAY DIRECTED FOR 28 DAYS FOR SMOKING CESSATION Lybalvi 15-10 mg tablet 1 tab PO DAILY Patient Comments: TAKE 1 TABLET BY MOUTH ONCE DAILY DIRECTED FOR 30 DAYS FOR BIPOLAR DISORDER oseltamivir [Tamiflu] 75 mg capsule 75 mg PO BID 5 Days Qty: 10 0RF Referrals Follow up/Referrals: aKmla Mcneil PA [Primary Care Provider, Medical] - See instructions Activity Restrictions/Add. Instructions Additional Instructions/Restrictions: Please return to the emergency department with any worsening signs or symptoms please bring your stool sample back to the emergency department to be tested for C. difficile and other colitis. Please continue to take all your medication as prescribed. Clinical Impressions Clinical Impression: Colitis Instructions Patient Instructions: DI for Colitis Print Language Print Language: German Discharge ED Provider: Zaina Arias General Adult HPI General Chief complaint: Nausea/Vomiting/Diarrhea Stated complaint: Colitis; Vomitting; C-diff test Time Seen by Provider: 03/13/25 20:15 Mode of Arrival: Ambulatory Source of Information: Patient and Medical Record Limitations: No Limitations History of Present Illness HPI narrative: 49-year-old female presents emergency department for a C. difficile test , patient states that she discussed results from previous ER visit on 08/10/2024 with her primary care provider today who advised her to come to the emergency department for a C. difficile test , she denies any nausea vomiting abdominal pain, denies any diarrhea, patient was seen in the emergency department as stated above for abdominal pain nausea and vomiting, this is since improved since her emergency department visit, she had a CT abdomen pelvis with contrast performed that showed no diverticular pancolitis of mucosal thickening, at that time they wanted to test for C. difficile colitis, however she was unable to tame stool sample, was subsequently offered admission for intractable nausea and vomiting, patient did leave AGAINST MEDICAL ADVICE, patient states that her symptomatology is improved and she is just here for C. difficile test , she denies any diarrhea, denies any melena hematochezia hematemesis or hemoptysis, she is currently able to tolerate p.o. intake, and is drinking coffee at the bedside, denies any fever chills chest pain shortness of breath, denies any urinary type symptomatology, other past medical history is consistent with SE, GERD, MDD, bipolar disorder. Initial triage vitals are unremarkable. Please note that above description of symptoms, in this electronic medical record under categorization of recalled from ER triage doctor by RN are reflective of an initial nursing assessment, however, is not reflective of my full history and physical exam that was personally taken and clarified. Consequentially, this preceding description of symptoms, which may include the patient's categorized chief complaint in the EMR, do not reflect my personal clinical impression, and the ultimate description of history of present illness and patient stated complaints should be deferred to this section of the note. Unless stated otherwise or congruent with this section of the note, additional signs, symptoms, or incongruence should be interpreted as inaccurate with my clinical impression. Onset (ago): day(s) Related Data Home Medications ?Medication ?Instructions ?Recorded ?Confirmed olanzapine 15 mg-samidorphan 10 mg 1 tab PO DAILY 06/3007/20/24 tablet (Lybalvi) varenicline tartrate 0.5 mg (11)-1 1 tab PO DAILY 06/3007/20/24 mg (42) tablets in a dose pack Previous Rx's ?Medication ?Instructions ?Recorded oseltamivir 75 mg capsule (Tamiflu) 75 mg PO BID 5 day s #10 caps 07/20/24 ondansetron 4 mg disintegrating 4 mg PO Q6H PRN nausea and 03/11/25 tablet vomiting #20 tabs Allergies Allergy/AdvReac Type Severity Reaction Status Date / Time Penicillins (PENICILLINS) Allergy Severe ANAPHYLACTI Verified 02/18/24 09:22 C hydrocodone (HYDROCODONE) Allergy Unknown ITCHING Verified 02/18/24 09:22 [facility] Disclaimer: The information contained in this section may have been updated after the patient was seen, as this information can be updated by other users. Medical History , HEALTH INFORMATION INTERNSHIP) delivery delivered Agoraphobia with panic attacks Anxiety Surgical History , HEALTH INFORMATION INTERNSHIP) History of partial hysterectomy Family History , HEALTH INFORMATION INTERNSHIP) Diabetes Heart attack FHx: mental illness Cancer Stroke Asthma Social History , HEALTH INFORMATION INTERNSHIP) Smoking Status: Current every day smoker tobacco type: e-cigarettes alcohol intake: never substance use type: marijuana current occupational status: other Travel in the last 8 weeks?: None household members: family housing: house number of children: 3 current occupation: factory Have you lived/traveled outside US in past 30 days?: No Contact w/someone who lives/traveled outside US past 30 days?: No Exposure to someone with infectious disease in past 14 days?: No Do you have a fever (greater than 100.4 F or 38 C)?: No Have you tested positive for COVID-19?: No Exposed to someone with COVID-19 in past 14 days?: No Do you have a sore throat?: No Do you have a cough?: No Do you have any weakness?: No Do you have any diarrhea?: No Are you experiencing any unusual bleeding?: No Do you have any muscle aches/pain?: No Do you have any abdominal pain?: No Are you experiencing loss of taste or smell?: No Other Medical History Have you received the Flu Vaccine for this season: No Have you received the Pneumonia Vaccine: No ROS Obtained: Yes All systems reviewed & no additional complaints except as documented Physical Exam General General appearance: alert and in no apparent distress Head Head exam: atraumatic and normocephalic Eye Eye exam: Present PERRL and EOMI ENT ENT exam: Present mucous membranes moist Neck Neck exam: Present normal inspection Chest Chest inspection: Present normal inspection and symmetric chest wall rise Respiratory Respiratory exam: Present normal lung sounds bilaterally; Absent respiratory distress Cardiovascular Cardiovascular exam: Present regular rate and normal rhythm Abdominal Exam Abdominal exam: Present soft; Absent tenderness, guarding, rebound or rigidity Extremities Exam Extremities exam: Present normal inspection Neurological Exam Neurological exam: Present alert and oriented X3 Psychiatric Psychiatric exam: Present normal affect Skin Skin exam: Present warm and dry Medical Decision Making Medical Records Medical records reviewed: Yes I reviewed the patient's medical records. Screening: Per USPSTF and CDC recommendations, given the prevalence of disease in our region, it is our hospital?s policy to screen for HIV and viral Hepatitis for all patients aged 18 and over and those with ongoing risk factors. Mushtaq Inquiry Pt receiving controlled substance: No Mushtaq was queried for this patient: No Vital Signs: 03/13/25 20:16 Temperature 98.8 F Temperature Source Oral Pulse Rate [Left] 78 Respiratory Rate 16 Blood Pressure [Right Arm] 116/74 Blood Pressure Mean [Right Arm] 88 Blood Pressure Source [Right Arm] Automatic Cuff Blood Pressure Position [Right Arm] Sitting 02 Sat by Pulse Oximetry 95 Oxygen Delivery Method Room Air Orders (Tests/Meds): ORDERS Category Date Time Status Diarrhea 6-11 Panel, Cdiff PCR Stat Lab 03/13/25 20:16 Ordered Medical Decision Narrative: 49-year-old female presents the emergency department with need for testing, differential diagnose include but not limited to, encounter for testing, colitis, ileitis, gastroenteritis among others. I discussed this patient's case with the attending physician I offered further laboratory studies and further workup to the patient at the bedside, patient denied at this time and would like to pursue C. difficile testing , patient dates she will give us a stool sample as outpatient in the emergency department, patient was unable to provide us sample today. Patient states her previous symptomatology is grossly improved she is tolerating p.o. intake, abdominal exam is benign. Discussed this with the patient at the bedside, shared decision making was utilized. Patient voiced understanding and agreement with current treatment plan/discharge plan. Critical Care Critical Care Time Critical Care Time: No
[2025-03-13 20:55] VITALS: BP 116/74; PULSE 80; RESP 15; TEMP 36.8; O2SAT 99
== END 2025-03-13 20:57 | disposition home or self-care (01) ==
PROVIDERS: Emergency Provider Student in an Organized Health Care Education/Training Program; PCP Physician Assistant
DX: R11.2 Nausea with vomiting, unspecified (principal); K52.9 Noninfective gastroenteritis and colitis, unspecified
CPT/HCPCS: 99283

== ENCOUNTER 2025-03-30 08:23 | Day surgery (SDC) | payer MEDICAID, SELFPAY ==
[2025-03-28 11:29] VITALS: BMI 21.5
--- NOTE | 2025-03-29 15:31 | EXP.HP ---
History of Present Illness *Admission Date: 03/30/25 *History of present illness: Mrs. Gonzalez is a 49-year-old female who is here for diagnostic colonoscopy. She does have a family history of colon cancer (maternal and paternal l grandmothers). The patient reports nausea and vomiting and was in the ED twice (03/10 and 03/13). Lab work has shown normal CBC with sed rate of 6. Her chemistries showed normal liver function and normal lipase 44. Her stool panel was not obtained. Her CAT scan on 03/10 showed nondiverticular pancolitis with mucosal thickening. The examination is deemed medically necessary for diagnostic colonoscopy. The patient has been seen, interviewed and examined prior to the procedure by both myself and the anesthesia provider. [facility] Disclaimer: The information contained in this section may have been updated after the patient was seen, as this information can be updated by other users. Medical History Bipolar 1 disorder, depressed, moderate delivery delivered Agoraphobia with panic attacks Anxiety Surgical History History of partial hysterectomy Family History , [employer]CE[employer] ST[employer]ER) Diabetes Heart attack FHx: mental illness Cancer Stroke Asthma Social History Smoking Status: Current every day smoker tobacco type: e-cigarettes alcohol intake: current substance use type: marijuana current occupational status: unemployed Travel in the last 8 weeks?: None household members: family housing: house number of children: 3 current occupation: factory Have you lived/traveled outside [place] in past 30 days?: No Contact w/someone who lives/traveled outside US past 30 days?: No Exposure to someone with infectious disease in past 14 days?: No Do you have a fever (greater than 100.4 F or 38 C)?: No Have you tested positive for COVID-19?: No Exposed to someone with COVID-19 in past 14 days?: No Do you have a sore throat?: No Do you have a cough?: No Do you have any weakness?: No Are you experiencing any nausea/vomitting?: No Do you have any diarrhea?: No Are you experiencing any unusual bleeding?: No Do you have any muscle aches/pain?: No Do you have any abdominal pain?: No Are you experiencing loss of taste or smell?: No Other Medical History Have you received the Flu Vaccine for this season: No Have you received the Pneumonia Vaccine: No Review of Systems Review of Systems Review of systems (narrative): Negative *Cardiovascular Comments: Negative *Gastrointestinal Comments: Negative *Genitourinary Comments: Negative *Musculoskeletal Comments: Negative *Neurologic Comments: Negative Meds Home Medications and Allergies Home Medications ?Medication ?Instructions ?Recorded ?Confirmed ?Type varenicline tartrate 0.5 mg (11)-1 1 tab PO DAILY 07/20/24 03/30/25 History mg (42) tablets in a dose pack ([employer] Starting Month Box) ondansetron 4 mg disintegrating 4 mg PO Q6H PRN nausea and 03/11/25 03/30/25 Rx tablet vomiting #20 tabs aripiprazole 5 mg tablet 5 mg PO DAILY 03/28/25 03/30/25 History buspirone 5 mg tablet 5 mg PO BID 03/28/25 03/30/25 History New Prescriptions to Start Prescriptions: Allergies Allergy/AdvReac Type Severity Reaction Status Date / Time Penicillins (PENICILLINS) Allergy Severe ANAPHYLACTI Verified 03/30/25 09:35 C hydrocodone (HYDROCODONE) Allergy Unknown ITCHING Verified 03/30/25 09:35 Exam Data for Last 24 hours I & O for Last 24 hours: Intake & Output 03/26/25 03/27/25 03/28/25 03/29/25 23:59 23:59 23:59 23:59 Weight 114 lb *Routine HEENT Exam Head: Present normocephalic Eye: Present EOMI and PERRL ENT: Present mucous membranes moist *Routine Neck Exam Neck: Present supple *Routine Respiratory Exam Respiratory: Present CTA bilaterally *Routine Cardiovascular Exam Cardiovascular: Present RRR *Routine Abdominal Exam Abdominal: Present soft and normoactive bowel sounds; Absent tenderness *Routine Rectal Exam Rectal:: deferred *Routine Genitalia Exam Genitalia:: deferred *Routine Extremities Exam Extremities: Absent cyanosis, clubbing or edema *Routine Skin Exam Skin: Present warm; Absent rash *Routine Neurological Exam Neurological: Present alert and oriented X3 Assessment and Plan *Assessment and plan (1) Diarrhea: Status: Acute Category: Medical Code(s): R19.7 - Diarrhea, unspecified (2) Nausea and vomiting: Status: Acute Category: Medical Code(s): R11.2 - Nausea with vomiting, unspecified (3) Colitis: Status: Acute Category: Medical Code(s): K52.9 - Noninfective gastroenteritis and colitis, unspecified Plan A/P: 1. Diarrhea, nausea and vomiting with CT scan evidence of colitis is the preprocedural diagnosis. The patient will be anesthetized/sedated using MAC sedation. The patient has been seen and examined. Cardiac and lung assessment prior to the examination is stable. Proceed with planned diagnostic colonoscopy.
--- NOTE | 2025-03-30 06:36 | P.PCN_ITS ---
[facility] Procedure Note Date: 03/30/25 Time: 10:44 Procedure Note:: Colonoscopy Procedure Report: Colonoscopy with cold snare polypectomy Endoscopist: Brent Huffman II, MD Referring physician: Kamla Mcneil PA-C Date of Procedure: March 30, 2025 Equipment: Olympus [id number] adult colonoscope Sedation: MAC sedation Indication: Mrs. Gonzalez is a 49-year-old female who is here for diagnostic colonoscopy. The patient reports nausea and vomiting and was in the ED twice (03/10 and 03/13). Lab work has shown normal CBC with sed rate of 6. Her chemistries showed normal liver function and normal lipase 44. Her stool panel was not obtained. Her CAT scan in the ED on 03/10 showed nondiverticular pancolitis with mucosal thickening. She does have a family history of colon cancer (both grandmothers with colon cancer and one of her grandmothers was age 58 at time of diagnosis). The patient has never had a colonoscopy. She does report the episodic nausea and vomiting 2-3 times annually. She has never had an upper endoscopy. She reports no rectal bleeding, diarrhea or constipation. She has had some weight loss. She does get some mild bloating. She does feel a knot in her upper abdomen when she gets this episodic nausea and vomiting. The examination is deemed medically necessary for diagnostic colonoscopy. Procedure: Prior to the procedure, a history and physical exam was performed, and patient's medications and allergies were reviewed. The risks, benefits and alternatives of the sedation and procedure were discussed with the patient. All questions were answered and informed consent was obtained. The patient was brought to the procedure room. Patient identification and proposed procedure were verified by the physician and the nurse. The patient was placed in a left lateral decubitus position and the scope was passed under direct vision. Throughout the p rocedure, the patient's blood pressure, pulse, and oxygen saturations were monitored continuously. The colonoscopy was accomplished without difficulty. The patient tolerated the procedure well. Findings: On digital rectal examination there was normal rectal tone. There were no external hemorrhoids. The colonoscope was introduced through the anal canal to the rectum and advanced to the cecum. The ileocecal valve and appendiceal orifice were identified. The scope was advanced a short distance into the ileum which appeared grossly normal. The scope was then withdrawn into the colon. There were 5 colon polyps (ascending x 1 (10 mm), transverse x 1 (5 mm), descending x 2 (4 and 5 mm) and rectum x 1 (3 mm)). These were all removed via cold snare polypectomy. The remaining cecum, ascending, transverse, descending, sigmoid and rectum were grossly normal. There was normal vascular pattern throughout without any evidence of colitis and there were no other mucosal abnormalities identified. Upon retroflexion within the rectum there were grade 1-2 internal hemorrhoids. The preparation was excellent throughout with [place] Preparation Score of 9. The cecal time was 12 minutes. Impression: 1. Colonic polyps x 5 Plan: I will follow-up the polyp histology and recommend repeat screening/surveillance colonoscopy again in 3 to 5 years based upon the pathology. I do feel that she is having cyclic and intermittent dyspepsia, nausea and vomiting. We should consider upper endoscopy due to the long-term cyclic nature of the nausea and vomiting.
[2025-03-30] MEDS: LACTATED RINGERS 1000ML 1,000 ML 50 ML IV (09:36)
[2025-03-30 09:37] VITALS: BP 110/62; PULSE 55; RESP 18; TEMP 36.3; O2SAT 99
--- NOTE | 2025-03-30 09:51 | P.PNANES_ITS ---
[facility] Disclaimer: The information contained in this section may have been updated after the patient was seen, as this information can be updated by other users. Medical History Bipolar 1 disorder, depressed, moderate delivery delivered Agoraphobia with panic attacks Anxiety Surgical History History of partial hysterectomy Family History , SUR[employer]Y RESEARCH ASSOCIATE) Diabetes Heart attack FHx: mental illness Cancer Stroke Asthma Social History Smoking Status: Current every day smoker tobacco type: e-cigarettes alcohol intake: current substance use type: marijuana current occupational status: unemployed Travel in the last 8 weeks?: None household members: family housing: house number of children: 3 current occupation: factory Have you lived/traveled outside [place] in past 30 days?: No Contact w/someone who lives/traveled outside [place] past 30 days?: No Exposure to someone with infectious disease in past 14 days?: No Do you have a fever (greater than 100.4 F or 38 C)?: No Have you tested positive for COVID-19?: No Exposed to someone with COVID-19 in past 14 days?: No Do you have a sore throat?: No Do you have a cough?: No Do you have any weakness?: No Are you experiencing any nausea/vomitting?: No Do you have any diarrhea?: No Are you experiencing any unusual bleeding?: No Do you have any muscle aches/pain?: No Do you have any abdominal pain?: No Are you experiencing loss of taste or smell?: No [facility] Anesthesia Checklist Patient Identification Patient Identification: Arm Band Structural Data Admitted From: Home Planned Operative Procedure/s: Colonoscopy Consent for Planned Operative Procedure(s) Verified: Yes Verified Documents: Surgical Consent and History and Physical NPO Status Verified Time NPO: 06:30 (finished prep) Additional verifications Anesthesia Reactions: No Hx Blood Transfusions: No Blood Transfusion Reaction: Yes Airway Assessment Mallampati Score:: Class II C-Spine Mobility Assessed: Yes TMJ Mobility Assessed: Yes Dentition: Good Dentition Neurological Assessment Level of Consciousness: Awake, Alert and Appropriate Anesthesia Plan Anesthesia Risk discussed: Yes Anesthesia Plan: Verified ASA Class: II Anesthesia Type: MAC
[2025-03-30 10:46] VITALS: BP 96/62; PULSE 66; RESP 16; TEMP 36.6; O2SAT 96
[2025-03-30 10:56] VITALS: BP 132/79; PULSE 63; RESP 18; TEMP 36.6; O2SAT 99
[2025-03-30 11:06] VITALS: BP 128/76; PULSE 64; RESP 18; TEMP 36.6; O2SAT 99
[2025-03-30 11:16] VITALS: BP 136/74; PULSE 62; RESP 18; TEMP 36.6; O2SAT 99
== END 2025-03-30 11:16 | disposition home or self-care (01) ==
PROVIDERS: PCP Physician Assistant; Visit Provider Internal Medicine Gastroenterology
PROC: 0DJD8ZZ Inspection of Lower Intestinal Tract, Via Natural or Artificial Opening Endoscopic (ICD-10-PCS; CPT 45378; principal; 2025-03-30 10:00)
DX: R11.2 Nausea with vomiting, unspecified (principal); D12.2 Benign neoplasm of ascending colon; D12.3 Benign neoplasm of transverse colon; D12.8 Benign neoplasm of rectum; K64.1 Second degree hemorrhoids; Z80.0 Family history of malignant neoplasm of digestive organs; F31.9 Bipolar disorder, unspecified; F40.01 Agoraphobia with panic disorder; F41.9 Anxiety disorder, unspecified; F17.290 Nicotine dependence, other tobacco product, uncomplicated; Z79.899 Other long term (current) drug therapy; Z88.0 Allergy status to penicillin; Z88.5 Allergy status to narcotic agent
CPT/HCPCS: 45385; J2003; J2704; J7120